=== PATIENT | female | born 1945 | race Caucasian/White ===

== ENCOUNTER 2020-02-09 11:35 | Outpatient (CLI) | payer MEDICARE, SELFPAY ==
[2020-02-09 12:26] LABS: Basophils Percent Auto 0.3 % (0.2-1.2); Eosinophils Absolute Auto 0.4 K/mm3 (0-0.3); Eosinophils Percent Auto 4.1 % (0-4.4); Hematocrit 41.2 % (37.0-47.0); Hemoglobin 13.6 g/dL (12.0-15.0); Immature Granulocyte Absolute 0.03 K/mm3 (0.00-0.031); Immature Granulocyte Percent A 0.3 % (0-0.5); Lymphocytes Absolute Auto 3.15 K/mm3 (0.9-3.2); Lymphocytes Percent Auto 32.8 % (18.3-44.2); Mean Corpuscular Hemoglobin 28.8 pg (26-34); Mean Corpuscular Volume 87.3 fl (80-100); Mean Platelet Volume 9.3 fl (7.4-10.4); Monocytes Absolute Auto 0.8 K/mm3 (0.1-0.6); Neutrophils Absolute Auto 5.2 K/mm3 (1.3-6.7); Neutrophils Percent Auto 54.5 % (45.5-73.1); Platelet Count Result 340 k/mm3 (150-375); Red Blood Count 4.72 M/mm3 (4.2-5.4); Red Cell Distribution Width 13.5 % (11.5-14.5); White Blood Count 9.6 K/mm3 (4.5-10.0)
[2020-02-09 12:27] LABS: Add Urine Microscopic? NO; Appearance Urine Clear (Clear); Bilirubin Urine Negative (Negative); Blood Urine Negative (Negative); Color Urine Yellow (Yellow); Glucose Urine UA Negative (Negative); Ketones Urine Negative (Negative); Leukocyte Esterase Ur Negative LEU/UL (NEGATIVE); Nitrate Urine Negative (Negative); Protein Urine Negative (Negative); Specific Grav Ur 1.018 (1.001-1.035); Urobilinogen Urine Negative mg/dL (<2.0)
[2020-02-09 12:40] LABS: Alanine Aminotransferase 32 U/L (4-35); Albumin Level 4.6 g/dL (3.5-5.1); Alkaline Phosphatase 99 U/L (38-126); Aspartate Amino Transferase 35 U/L (14-36); Bilirubin,Total 0.4 mg/dL (0.2-1.3); Blood Urea Nitrogen 20 mg/dL (7-17); Calcium 9.4 mg/dL (8.4-10.2); Carbon Dioxide 27 mmol/L (22-30); Chloride 101 mmol/L (98-107); Cholesterol 190 mg/dL (0-200); Estimated Glomerular Filt Rate 54; Glucose 100 mg/dL (65-105); HDL Direct 54 mg/dL; Potassium 4.2 mmol/L (3.4-5.0); Sodium 137 mmol/L (137-145); Triglycerides 91 mg/dL (<150)
[2020-02-09 12:51] LABS: LDL Cholesterol Direct 106 mg/dL
[2020-02-09 13:04] LABS: Vitamin D 25 Hydroxy 55.5 ng/mL
== END 2020-02-09 11:36 | disposition home or self-care (01) ==
PROVIDERS: PCP Internal Medicine; Visit Provider Internal Medicine
DX: Z79.899 Other long term (current) drug therapy (principal); I10 Essential (primary) hypertension
CPT/HCPCS: 36415; 80053; 80061; 81003; 82306; 83036; 84443; 85025

== ENCOUNTER 2020-05-19 11:08 | Outpatient (CLI) | payer MEDICARE, SELFPAY ==
[2020-05-19 11:49] LABS: Hemoglobin A1C 5.5 % (<5.7)
[2020-05-19 11:52] LABS: Alanine Aminotransferase 30 U/L (4-35); Albumin Level 4.7 g/dL (3.5-5.1); Alkaline Phosphatase 95 U/L (38-126); Anion Gap 7 mmol/L (8-16); Aspartate Amino Transferase 35 U/L (14-36); Bilirubin,Total 0.4 mg/dL (0.2-1.3); Blood Urea Nitrogen 15 mg/dL (7-17); Calcium 9.9 mg/dL (8.4-10.2); Carbon Dioxide 24 mmol/L (22-30); Chloride 102 mmol/L (98-107); Estimated Glomerular Filt Rate 54; Glucose 104 mg/dL (65-105); Potassium 4.6 mmol/L (3.4-5.0); Sodium 133 mmol/L (137-145)
[2020-05-19 12:09] LABS: Creatinine Urine 259.4 mg/dL
[2020-05-19 12:13] LABS: MALB Creatinine Ratio 3.9 mg/g (0-30)
== END 2020-05-19 11:09 | disposition home or self-care (01) ==
LOC: ANHLAB 11:15
PROVIDERS: PCP Internal Medicine; Visit Provider Internal Medicine
DX: R73.01 Impaired fasting glucose (principal)
CPT/HCPCS: 36415; 80053; 82043; 83036

== ENCOUNTER 2020-11-12 12:37 | Outpatient (CLI) | payer MEDICARE, SELFPAY ==
--- NOTE | ~2020-11-12 | MR_ITS ---
EXAMINATION: MR thoracic spine wo con EXAM DATE: 11/12/2020 14:00 INDICATION: M48.00 - Spinal stenosis, site unspecified . Chronic mid back pain. TECHNIQUE: Multi-sequential, multiplanar MR images of the thoracic spine were obtained without contra st. Sagittal T1, T2, T2 fat saturation, axial T2 weighted images reviewed. There is no prior study for comparison. FINDINGS: Prominent thoracic kyphosis. There is mild to moderate mid thoracic disc disease, mild at t he upper and lower levels. Small Schmorl's nodes. The vertebral bodies are aligned in the AP dimensio n. Paraspinal soft tissue is unremarkable. There is mild to moderate thoracic facet arthropathy. Thor acic spinal canal is widely patent. There is moderate bilateral neural foraminal stenosis at T4-5 and right neural foraminal stenosis at T2-3. Otherwise the thoracic neural foramen are widely patent. There are no suspicious marrow signal abnormalities. Paraspinal soft tissue is unremarkable. IMPRESSION: 1. Overall mild to moderate thoracic spondylosis. Reviewed, dictated and finalized at location A.
--- NOTE | ~2020-11-12 | MR_ITS ---
EXAMINATION: MR lumbar spine wo/w con EXAM DATE: 11/12/2020 14:00 INDICATION: Spinal stenosis, chronic low back pain. Radiculopathy mostly right leg. TECHNIQUE: Multi-sequential, multiplanar MR images of the lumbar spine were obtained without contrast . Sagittal T1, T2, T2 fat saturation images. Axial T2 weighted images. Axial T1 weighted sequence. Patient was then injected with 20 mL Multihance intravenous contrast and reimaged. Postcontrast axi al and sagittal T1-weighted fat saturation sequences were obtained. Comparison is made to prior exami nation from 06/09/2016. FINDINGS: The conus medullaris terminates at the L1 level and has normal signal intensity and morphol ogy. There is moderate to severe loss of the L5-S1 disc height, mild to moderate loss at L2-3 and L1 -2, mild at L3-4. There is 3 mm anterolisthesis L3 on L4 and 5 mm retrolisthesis L5 on S1. There are no suspicious marrow signal abnormalities. Paraspinal soft tissue is unremarkable. There are no areas of abnormal enhancement on the post contrast images. Level by level evaluation: T12-L1: There is a minimal diffuse disc bulge. Facet arthropathy: Mild. Neural foraminal stenosis: No stenosis. Central canal stenosis: No stenosis. L1-L2: There is a mild diffuse disc bulge. Facet arthropathy: Mild to moderate. Neural foraminal stenosis: No stenosis. Central canal stenosis: No stenosis. L2-L3: There is a mild to moderate diffuse disc bulge. Facet arthropathy: Mild to moderate. Neural foraminal stenosis: Mild bilateral. Central canal stenosis: Mild. L3-L4: There is a mild to moderate diffuse disc bulge. Facet arthropathy: Severe left, moderate right. Neural foraminal stenosis: Mild to moderate left, mild right. Central canal stenosis: Moderate. L4-L5: There is a mild to moderate diffuse disc bulge. Facet arthropathy: Moderate to severe bilateral. Neural foraminal stenosis: Mild to moderate right, mild left. Central canal stenosis: Moderate, less than level above. L5-S1: There is a moderate diffuse disc bulge. Facet arthropathy: Moderate to severe. Neural foraminal stenosis: Moderate bilateral. Central canal stenosis: Moderate. Compared to 2016, there has been progression in spondylosis, particularly the disc disease at L5-S1 a nd slight increase in the retrolisthesis at this level. IMPRESSION: 1. Overall moderate lumbar spondylosis. 2. No acute findings. Reviewed, dictated and finalized at location A.
[2020-11-12 13:07] LABS: Estimated Glomerular Filt Rate > 60
== END 2020-11-12 12:38 | disposition home or self-care (01) ==
PROVIDERS: PCP Internal Medicine; Visit Provider Internal Medicine
DX: G89.29 Other chronic pain (principal); M48.00 Spinal stenosis, site unspecified; M47.894 Other spondylosis, thoracic region; M47.896 Other spondylosis, lumbar region
CPT/HCPCS: 72146; 72158; A9577

== ENCOUNTER 2021-05-17 10:34 | Outpatient (CLI) | payer MEDICARE, SELFPAY ==
[2021-05-17 11:47] LABS: Basophils Percent Auto 0.5 % (0.2-1.2); Eosinophils Absolute Auto 0.4 K/mm3 (0-0.3); Eosinophils Percent Auto 4.7 % (0-4.4); Hematocrit 42.1 % (37.0-47.0); Hemoglobin 14.1 g/dL (12.0-15.0); Immature Granulocyte Absolute 0.02 K/mm3 (0.00-0.031); Immature Granulocyte Percent A 0.2 % (0-0.5); Lymphocytes Absolute Auto 2.32 K/mm3 (0.9-3.2); Lymphocytes Percent Auto 26.7 % (18.3-44.2); Mean Corpuscular HGB Conc 33.5 g/dl (32-36); Mean Corpuscular Hemoglobin 30.2 pg (26-34); Mean Corpuscular Volume 90.1 fl (80-100); Mean Platelet Volume 8.6 fl (7.4-10.4); Monocytes Absolute Auto 0.8 K/mm3 (0.1-0.6); Monocytes Percent Auto 9.2 % (2.6-8.5); Neutrophils Absolute Auto 5.1 K/mm3 (1.3-6.7); Neutrophils Percent Auto 58.7 % (45.5-73.1); Platelet Count Result 342 k/mm3 (150-375); Red Blood Count 4.67 M/mm3 (4.2-5.4); White Blood Count 8.7 K/mm3 (4.5-10.0)
[2021-05-17 12:02] LABS: Alanine Aminotransferase 32 U/L (4-35); Alkaline Phosphatase 93 U/L (38-126); Anion Gap 8 mmol/L (8-16); Aspartate Amino Transferase 34 U/L (14-36); Bilirubin,Total 0.3 mg/dL (0.2-1.3); Blood Urea Nitrogen 21 mg/dL (7-17); Calcium 10.1 mg/dL (8.4-10.2); Carbon Dioxide 26 mmol/L (22-30); Chloride 100 mmol/L (98-107); Cholesterol 212 mg/dL (0-200); Estimated Glomerular Filt Rate 44; Glucose 108 mg/dL (65-110); HDL Direct 49 mg/dL; Potassium 4.7 mmol/L (3.4-5.0); Sodium 134 mmol/L (137-145); Triglycerides 129 mg/dL (<150)
[2021-05-17 12:12] LABS: LDL Cholesterol Direct 113 mg/dL
[2021-05-17 12:36] LABS: Vitamin D 25 Hydroxy 79.8 ng/mL
[2021-05-17 12:42] LABS: Hemoglobin A1C 5.8 % (<5.7)
[2021-05-17 12:52] LABS: Creatinine Urine 314.5 mg/dL
[2021-05-17 12:53] LABS: MALB Creatinine Ratio 8.9 mg/g (0-30); Microalbumin Urine Random 27.9 mg/L (0-16.7)
== END 2021-05-17 10:35 | disposition home or self-care (01) ==
PROVIDERS: PCP Internal Medicine; Visit Provider Internal Medicine
DX: E55.9 Vitamin D deficiency, unspecified (principal); G89.29 Other chronic pain; I10 Essential (primary) hypertension; M48.00 Spinal stenosis, site unspecified; M54.5 Low back pain; R73.01 Impaired fasting glucose; E78.2 Mixed hyperlipidemia
CPT/HCPCS: 36415; 80053; 80061; 82043; 82306; 83036; 84443; 85025

== ENCOUNTER → 2021-09-13 01:22 | Outpatient (CLI) | payer MEDICARE, SELFPAY ==
[2021-09-13 13:52] LABS: Influenza A QL RT-PCR Negative (Negative); Influenza B QL RT-PCR Negative (Negative); SARS-CoV-2 RNA PCR Negative
== END ==
PROVIDERS: PCP Internal Medicine; Visit Provider Internal Medicine
DX: R09.89 Other specified symptoms and signs involving the circulatory and respiratory systems (principal); Z20.822 Contact with and (suspected) exposure to COVID-19
CPT/HCPCS: 87502; C9803; U0003; U0005

== ENCOUNTER 2021-11-22 11:31 | Outpatient (CLI) | payer MEDICARE, SELFPAY ==
[2021-11-22 12:19] LABS: Alanine Aminotransferase 30 U/L (4-35); Albumin Level 4.5 g/dL (3.5-5.1); Alkaline Phosphatase 92 U/L (38-126); Anion Gap 9 mmol/L (8-16); Aspartate Amino Transferase 35 U/L (14-36); Bilirubin,Total 0.4 mg/dL (0.2-1.3); Blood Urea Nitrogen 16 mg/dL (7-17); Calcium 9.9 mg/dL (8.4-10.2); Carbon Dioxide 24 mmol/L (22-30); Chloride 102 mmol/L (98-107); Cholesterol 172 mg/dL (0-200); Estimated Glomerular Filt Rate > 60; Glucose 104 mg/dL (65-110); HDL Direct 56 mg/dL; Potassium 4.4 mmol/L (3.4-5.0); Sodium 135 mmol/L (137-145); Triglycerides 106 mg/dL (<150)
[2021-11-22 12:27] LABS: Hemoglobin A1C 5.6 % (<5.7)
[2021-11-22 12:29] LABS: LDL Cholesterol Direct 80 mg/dL
[2021-11-22 12:56] LABS: Creatinine Urine 152.1 mg/dL
[2021-11-22 13:00] LABS: MALB Creatinine Ratio 7.9 mg/g (0-30)
== END 2021-11-22 11:32 | disposition home or self-care (01) ==
PROVIDERS: PCP Internal Medicine; Visit Provider Internal Medicine
DX: R73.01 Impaired fasting glucose (principal); I10 Essential (primary) hypertension; E78.2 Mixed hyperlipidemia
CPT/HCPCS: 36415; 80053; 80061; 82043; 83036

== ENCOUNTER 2022-06-28 14:20 | Outpatient (CLI) | payer MEDICARE, SELFPAY ==
[2022-06-28 14:57] LABS: Alanine Aminotransferase 34 U/L (6-35); Albumin Level 4.7 g/dL (3.5-5.1); Alkaline Phosphatase 84 U/L (38-126); Anion Gap 9 mmol/L (8-16); Aspartate Amino Transferase 32 U/L (14-36); Bilirubin,Total 0.4 mg/dL (0.2-1.3); Blood Urea Nitrogen 19 mg/dL (7-17); Calcium 9.3 mg/dL (8.4-10.2); Carbon Dioxide 26 mmol/L (22-30); Chloride 97 mmol/L (98-107); Cholesterol 163 mg/dL (0-200); Estimated Glomerular Filt Rate 48; Glucose 95 mg/dL (65-110); HDL Direct 59 mg/dL; Potassium 4.5 mmol/L (3.4-5.0); Sodium 132 mmol/L (137-145); Triglycerides 79 mg/dL (<150)
[2022-06-28 15:08] LABS: LDL Cholesterol Direct 67 mg/dL
[2022-06-28 15:13] LABS: Hemoglobin A1C 6.1 % (<5.7)
[2022-06-28 17:00] LABS: Vitamin D 25 Hydroxy 64.2 ng/mL
== END 2022-06-28 14:21 | disposition home or self-care (01) ==
LOC: ANHLAB 14:23
PROVIDERS: PCP Internal Medicine; Visit Provider Nurse Practitioner
DX: E78.5 Hyperlipidemia, unspecified (principal); R73.01 Impaired fasting glucose; E55.9 Vitamin D deficiency, unspecified
CPT/HCPCS: 36415; 80053; 80061; 82306; 83036

== ENCOUNTER 2022-11-07 13:44 | Outpatient (CLI) | payer MEDICARE, SELFPAY ==
[2022-11-07 15:00] LABS: Alanine Aminotransferase 34 U/L (6-35); Albumin Level 4.6 g/dL (3.5-5.1); Alkaline Phosphatase 88 U/L (38-126); Anion Gap 7 mmol/L (8-16); Aspartate Amino Transferase 35 U/L (14-36); Bilirubin,Total 0.5 mg/dL (0.2-1.3); Blood Urea Nitrogen 22 mg/dL (7-17); Calcium 9.9 mg/dL (8.4-10.2); Carbon Dioxide 27 mmol/L (22-30); Chloride 100 mmol/L (98-107); Estimated Glomerular Filt Rate 54; Glucose 93 mg/dL (65-110); Potassium 4.5 mmol/L (3.4-5.0); Sodium 134 mmol/L (137-145)
[2022-11-07 15:16] LABS: Hemoglobin A1C 5.7 % (<5.7)
== END 2022-11-07 13:45 | disposition home or self-care (01) ==
PROVIDERS: PCP Internal Medicine; Visit Provider Internal Medicine
DX: R73.01 Impaired fasting glucose (principal); I10 Essential (primary) hypertension
CPT/HCPCS: 36415; 80053; 83036

== ENCOUNTER 2023-05-16 09:51 | Outpatient (CLI) | payer MEDICARE, SELFPAY ==
[2023-05-16 10:47] LABS: Hemoglobin A1C 5.8 % (<5.7)
[2023-05-16 10:53] LABS: Alanine Aminotransferase 37 U/L (6-35); Albumin Level 4.6 g/dL (3.5-5.1); Alkaline Phosphatase 83 U/L (38-126); Anion Gap 8 mmol/L (8-16); Aspartate Amino Transferase 41 U/L (14-36); Bilirubin,Total 0.6 mg/dL (0.2-1.3); Blood Urea Nitrogen 21 mg/dL (7-17); Calcium 9.6 mg/dL (8.4-10.2); Carbon Dioxide 27 mmol/L (22-30); Chloride 101 mmol/L (98-107); Estimated Glomerular Filt Rate 54; Glucose 115 mg/dL (65-110); Potassium 4.6 mmol/L (3.4-5.0); Sodium 136 mmol/L (137-145)
== END 2023-05-16 09:52 | disposition home or self-care (01) ==
PROVIDERS: PCP Internal Medicine; Visit Provider Nurse Practitioner Family
DX: I10 Essential (primary) hypertension (principal); R73.01 Impaired fasting glucose
CPT/HCPCS: 36415; 80053; 83036

== ENCOUNTER 2023-07-22 14:56 | Outpatient (CLI) | payer MEDICARE, SELFPAY ==
[2023-07-22 15:30] LABS: Basophils Absolute Auto 0.1 K/mm3 (0.0-0.1); Basophils Percent Auto 0.8 % (0.2-1.2); Eosinophils Absolute Auto 0.4 K/mm3 (0-0.3); Eosinophils Percent Auto 3.1 % (0-4.4); Hematocrit 40.1 % (37.0-47.0); Hemoglobin 13.3 g/dL (12.0-15.0); Immature Granulocyte Absolute 0.06 K/mm3 (0.00-0.031); Immature Granulocyte Percent A 0.5 % (0-0.5); Lymphocytes Absolute Auto 2.23 K/mm3 (0.9-3.2); Lymphocytes Percent Auto 19.8 % (18.3-44.2); Mean Corpuscular HGB Conc 33.2 g/dl (32-36); Mean Corpuscular Hemoglobin 29.4 pg (26-34); Mean Corpuscular Volume 88.5 fl (80-100); Monocytes Absolute Auto 1.2 K/mm3 (0.1-0.6); Monocytes Percent Auto 10.6 % (2.6-8.5); Neutrophils Absolute Auto 7.4 K/mm3 (1.3-6.7); Neutrophils Percent Auto 65.2 % (45.5-73.1); Platelet Count Result 464 k/mm3 (150-375); Red Blood Count 4.53 M/mm3 (4.2-5.4); White Blood Count 11.3 K/mm3 (4.5-10.0)
[2023-07-22 15:41] LABS: Alanine Aminotransferase 615 U/L (6-35); Albumin Level 4.4 g/dL (3.5-5.1); Alkaline Phosphatase 335 U/L (38-126); Amylase 67 U/L (30-110); Anion Gap 12 mmol/L (8-16); Aspartate Amino Transferase 316 U/L (14-36); Bilirubin Direct 4.5 mg/dL (0-0.3); Bilirubin,Total 8.6 mg/dL (0.2-1.3); Blood Urea Nitrogen 29 mg/dL (7-17); Calcium 10.3 mg/dL (8.4-10.2); Carbon Dioxide 18 mmol/L (22-30); Chloride 103 mmol/L (98-107); Estimated Glomerular Filt Rate 37; Glucose 109 mg/dL (65-110); Lipase 112 U/L (23-300); Potassium 4.4 mmol/L (3.4-5.0); Sodium 133 mmol/L (137-145)
== END 2023-07-22 14:57 | disposition home or self-care (01) ==
LOC: ANHLAB 14:58
PROVIDERS: PCP Nurse Practitioner Family; Visit Provider Nurse Practitioner Family
DX: R17 Unspecified jaundice (principal); R10.11 Right upper quadrant pain; R19.8 Other specified symptoms and signs involving the digestive system and abdomen
CPT/HCPCS: 36415; 80053; 82150; 82248; 83690; 85025

== ENCOUNTER 2023-07-23 13:02 | Outpatient (CLI) | payer MEDICARE, SELFPAY ==
--- NOTE | ~2023-07-23 | US_ITS ---
US abdomen complete EXAMINATION: US Abdomen Complete INDICATION: Right upper quadrant pain PROCEDURE: Realtime High Resolution abdomen ultrasound. COMPARISON: No prior studies for comparison FINDINGS: There are gallstones. No gallbladder wall thickening or pericholecystic fluid. Common bile duct measures 8 mm. Liver echotexture is increased, consistent with fatty infiltration.. Pancreas within normal limits. Pancreatic tail is obscured by bowel gas. Spleen is unremarkeable. Renal echotexture is within norm al limits bilaterally without hydronephrosis, contour deforming mass or renal stone. Right kidney alexa sures 10.6 cm. Left kidney measures 11 cm. Visualized aspects of the aorta and IVC are within normal limits. Portal vein is patent. No sonograph ic Bradshaw's sign indicated by the technologist. IMPRESSION: 1: Hepatic steatosis. 2: Cholelithiasis. Reviewed, dictated and finalized at location L. ESS RACING HANDICAPPER
[2023-07-23 14:07] LABS: Alanine Aminotransferase 574 U/L (6-35); Albumin Level 4.4 g/dL (3.5-5.1); Alkaline Phosphatase 357 U/L (38-126); Anion Gap 12 mmol/L (8-16); Aspartate Amino Transferase 290 U/L (14-36); Blood Urea Nitrogen 29 mg/dL (7-17); Calcium 10.1 mg/dL (8.4-10.2); Carbon Dioxide 21 mmol/L (22-30); Chloride 103 mmol/L (98-107); Estimated Glomerular Filt Rate 54; Glucose 103 mg/dL (65-110); Potassium 4.4 mmol/L (3.4-5.0); Sodium 136 mmol/L (137-145)
[2023-07-23 15:21] LABS: Hepatitis B Surface Antigen Negative (Negative)
[2023-07-23 15:27] LABS: HAV RESULT Negative (Negative); Hepatitis B Core IgM Result Negative (Negative)
[2023-07-23 16:38] LABS: Hepatitis C Virus Antibody Negative (Negative)
== END 2023-07-23 13:03 | disposition home or self-care (01) ==
PROVIDERS: PCP Nurse Practitioner Family; Visit Provider Nurse Practitioner Family
DX: R10.11 Right upper quadrant pain (principal); K76.0 Fatty (change of) liver, not elsewhere classified; K80.20 Calculus of gallbladder without cholecystitis without obstruction
CPT/HCPCS: 36415; 76700; 80053; 80074

== ENCOUNTER 2023-07-25 09:53 | Outpatient (CLI) | payer MEDICARE, SELFPAY ==
--- NOTE | ~2023-07-25 | CT_ITS ---
CT of the Abdomen and Pelvis: Indication: Abdominal pain Technique: 2.5 mm axial scans were obtained through the abdomen and pelvis following intravenous adm inistration of 100 cc of Omnipaque 350. Dose reduction technique was used on this scan by utilizing a utomated exposure control and iterative reconstruction technique. The dose-length product (DLP) was 1 373.58 mGy-cm. Findings: Scans through the lung bases are unremarkable. Multiple calcified gallstones are present with a distended gallbladder. There is intrahepatic biliary dilatation. Common bile duct is mildly dilated, with calcified stone or stones at the distal common duct (axial images 77-79). The spleen, pancreas, adrenals and kidneys are within normal limits. No evidence of aortic aneurysm. No lymphadenopathy. Possible wall thickening of the transverse colon versus underdistention. No bowel obstruction. No abs cess or free air. Images through the pelvis are degraded by streak artifact from bilateral hip arthroplasty. No gross p elvic mass seen. Urinary bladder is grossly unremarkable. No ascites. Impression: Choledocholithiasis, cholelithiasis, and intrahepatic biliary dilatation, as detailed above. Possible wall thickening of transverse colon versus underdistention. Correlate for infectious/inflamm atory colitis. Reviewed, dictated and finalized at location . HANDISING DIRECTOR Impression: Choledocholithiasis, cholelithiasis, and intrahepatic biliary dilatation, as de tailed above. Possible wall thickening of transverse colon versus underdistention. Correlate for infectious/inflammatory colitis.
== END 2023-07-25 09:54 | disposition home or self-care (01) ==
PROVIDERS: PCP Nurse Practitioner Family; Visit Provider Nurse Practitioner Family
DX: R17 Unspecified jaundice (principal); R10.9 Unspecified abdominal pain; E80.6 Other disorders of bilirubin metabolism; K80.50 Calculus of bile duct without cholangitis or cholecystitis without obstruction
CPT/HCPCS: 74177; Q9967

== ENCOUNTER 2023-07-25 15:13 | Inpatient (IN) | payer MEDICARE, SELFPAY ==
--- NOTE | ~2023-07-25 | XR_ITS ---
EXAMINATION: XR ERCP DATE: 07/26/2023 15:01 INDICATION: Choledocholithiasis. TECHNIQUE: 3 spot fluoroscopic images of the right upper quadrant were obtained during endoscopic ret rograde cholangiopancreatography (ERCP). Fluoroscopy exposure time was 224 seconds. COMPARISON: CT abdomen and pelvis 07/25/2023 FINDINGS: The endoscope is in the second portion of the duodenum. There are stones in the common duct . IMPRESSION: 1. Common duct stones. Please refer to the ERCP procedure note for additional details. Reviewed, dictated and finalized at location A. BUILDER IMPRESSION: 1. Common duct stones. Please refer to the ERCP procedure note for additional d etails.
[2023-07-25 16:02] VITALS: BMI 36.8
--- NOTE | 2023-07-25 16:44 | PM.IMHP ---
H&P: HPI History of Present Illness Date/Time: 07/25/23 16:44 Chief Complaint: Jaundice Narrative: 77 y/o F presents here with jaundice and changes in stool with PMH of HLD, HTN, osteoporosis, spinal stenosis, and arthritis. Patient reports that approximately 1 month ago she experienced an episode of sharp pain between her shoulder blades that was accompanied by nausea, vomiting, and multiple bowel movements. Nausea, vomiting, and upper back pain lasted approximately 1 day and resolved without intervention. However since this episode, she developed pale (white to yellow) colored stool, multiple bowel movements per day, and has noticed an insidious onset of yellowing of her skin/sclera. patient then made appointment with her PCP, attended appointment on 07/22. Lab work revealed mild hyponatremia, TAMY, total bilirubin of 8.6, elevated LFTs, and elevated alk-phos with a negative hepatitis panel. CT showed Choledocholithiasis, cholelithiasis, and intrahepatic biliary dilatation. RUQ US showed Hepatic steatosis, Cholelithiasis, and negative Bradshaw's Sign. Patient was then directly admitted for GI consultation. Review of Systems Review of Systems: All systems reviewed & are unremarkable except as noted in HPI and below PMFSH Past Medical History Medical History Arthritis Degenerative arthritis of knee, bilateral Dyslipidemia Hypertension IFG (impaired fasting glucose) Obesity (BMI 30-39.9) Osteoporosis Spinal stenosis Surgical History Surgical History History of bilateral hip replacements right 2013 standard left 2019 anterior History of foot surgery Family History Family History Mother Hypertension Asthma Cerebrovascular accident Family history of thyroid disease Family history of osteoporosis Depression Heart disease Father Family history of arthritis Family history of thyroid disease, Onset Age: 92 Social History Social History Smoking status: Never smoker Alcohol intake: current Drinks per week: 1 Alcohol use details: social Substance use: never Substance use type: does not use Lack of Transportation: No Lack of Food: Never True Current Housing: I Have Housing Concerned About Future Housing: No Difficulty Paying Gas/Electric Bills: No Difficulty Paying for Meds: No Currently Unemployed: No Education: Bachelor's Degree Difficulty w/ Childcare or Family Care: No Living arrangements: with family Spiritual care concerns: No Meds Home Medications and Allergies Home Medications Medication Instructions Recorded Confirmed Type calcium carbonate 500 mg calcium 500 mg PO DAILY 11/04/20 07/25/23 History (1,250 mg) tablet multivitamin 1 tablet PO DAILY 11/04/20 07/25/23 History turmeric root extract 500 mg 500 mg PO DAILY 11/04/20 07/25/23 History capsule cholecalciferol (vitamin D3) 25 25 mcg PO DAILY 12/12/21 07/25/23 History mcg (1,000 unit) capsule ginkgo biloba 40 mg tablet 40 mg PO DAILY 06/26/22 07/25/23 History vitamins A,C,W-bmlm-oftfwv 4,296 1 cap PO BID 06/26/22 07/25/23 History mcg-226 mg-90 mg capsule (ICaps AREDS) acetaminophen 650 mg 650 mg PO Q12H #60 tabs 11/13/22 07/25/23 Rx tablet,extended release (Tylenol Arthritis Pain) amlodipine 5 mg tablet See Rx Instructions .Route 05/21/23 07/25/23 Rx .COMPLEX #90 tabs lisinopril 20 mg tablet See Rx Instructions .Route 05/21/23 07/25/23 Rx .COMPLEX #90 tabs Allergies Allergy/AdvReac Type Severity Reaction Status Date / Time meloxicam Allergy Unknown CONFUSION Verified 07/22/23 13:47 prednisone Allergy Unknown CYST Verified 07/22/23 13:47 DEVELOP triamterene Allergy Unknown DECREASED Verified 07/22/23 13:47 KIDNEY FU
[2023-07-25 16:50] LABS: Basophils Absolute Auto 0.1 K/mm3 (0.0-0.1); Basophils Percent Auto 0.9 % (0.2-1.2); Eosinophils Absolute Auto 0.2 K/mm3 (0-0.3); Eosinophils Percent Auto 2.4 % (0-4.4); Hematocrit 35.3 % (37.0-47.0); Hemoglobin 11.5 g/dL (12.0-15.0); Immature Granulocyte Absolute 0.05 K/mm3 (0.00-0.031); Immature Granulocyte Percent A 0.5 % (0-0.5); Lymphocytes Absolute Auto 1.78 K/mm3 (0.9-3.2); Lymphocytes Percent Auto 19.3 % (18.3-44.2); Mean Corpuscular HGB Conc 32.6 g/dl (32-36); Mean Corpuscular Hemoglobin 29.5 pg (26-34); Mean Corpuscular Volume 90.5 fl (80-100); Mean Platelet Volume 9.1 fl (7.4-10.4); Monocytes Percent Auto 11.1 % (2.6-8.5); Neutrophils Absolute Auto 6.1 K/mm3 (1.3-6.7); Neutrophils Percent Auto 65.8 % (45.5-73.1); Platelet Count Result 399 k/mm3 (150-375); Red Cell Distribution Width 15.8 % (11.5-14.5); White Blood Count 9.2 K/mm3 (4.5-10.0)
[2023-07-25 16:52] LABS: Alanine Aminotransferase 413 U/L (6-35); Albumin Level 3.8 g/dL (3.5-5.1); Alkaline Phosphatase 334 U/L (38-126); Anion Gap 13 mmol/L (8-16); Aspartate Amino Transferase 211 U/L (14-36); Bilirubin,Total 10.4 mg/dL (0.2-1.3); Blood Urea Nitrogen 24 mg/dL (7-17); Calcium 9.3 mg/dL (8.4-10.2); Carbon Dioxide 17 mmol/L (22-30); Chloride 103 mmol/L (98-107); Estimated CRCL calculation 50 ml/min; Estimated Glomerular Filt Rate 48; Glucose 107 mg/dL (65-110); Lipase 102 U/L (23-300); Potassium 3.7 mmol/L (3.4-5.0); Sodium 133 mmol/L (137-145)
[2023-07-25 16:57] LABS: INR 1.1; Prothrombin Time 14.6 Seconds (11.1-14.7)
--- NOTE | 2023-07-25 17:05 | PM.CNGS ---
Assessment and Plan Assessment and plan (1) Obstructive jaundice: Code(s): K83.1 - Obstruction of bile duct Status: Acute Assessment and Plan: Agree with planned ERCP tomorrow per Dr. Hudson. Hopefully this will show gallstones as cause of obstruction as suggested by CT scan. Malignancy still possible as patient is elderly and experienced back pain up around her right shoulder blade and left shoulder blade. This pain lasted a week. No abdominal pain at all. Jaundice started about one week ago. Other than the early back pain, jaundice is painless. Further plans per findings on ERCP. (2) Cholelithiasis with choledocholithiasis: Code(s): K80.70 - Calculus of gallbladder and bile duct without cholecystitis without obstruction Status: Acute Assessment and Plan: noted on imaging. If stones in CBD as CT suggests, will need eventual cholecystectomy. I explained this to her and described the surgery. I also explained that she may possibly go home and come back to have the surgery as an outpatient. She would like to do that if feasible. (3) Essential hypertension: Code(s): I10 - Essential (primary) hypertension Status: Chronic (4) Primary osteoarthritis involving multiple joints: Code(s): M89.49 - Other hypertrophic osteoarthropathy, multiple sites Status: Chronic (5) Spinal stenosis: Qualifiers: Spinal region: unspecified Qualified Code(s): M48.00 - Spinal stenosis, site unspecified Code(s): M48.00 - Spinal stenosis, site unspecified Status: Chronic (6) Chronic bilateral low back pain without sciatica: Code(s): M54.5 - Low back pain; G89.29 - Other chronic pain Status: Chronic History of Present Illness Consult details Consult date: 07/25/23 Reason for consult: gallstones (Jaundice and common bile duct stones) Requesting physician: Mariah Au APRN Narrative: Patient is a 77 yo woman who about a month ago ate some meat loaf and potatoes. Following this she developed upper back pain as well as multiple episodes of vomiting. She had some loose stools as well. The pain was really bad for about 24hrs but lasted for a week altogether. She has not had the back pain since then. She has never had any abdominal through the entirety of her present illness. The vomiting stopped after about 24 hours too. She has continued to have more frequent stools than is her normal and the bowel movements have looked white. About a week ago, she noticed that her skin had a yellowish color rather than the normal. Her primary care provider ordered an ultrasound and hepatic function tests with CBC and metabolic profile. Her liver function tests were elevated and her bilirubin was 10. Her ultrasound showed gallstones. Her testing was repeated today and bilirubin remains over 10 with increased LFTs. She had a CT scan of the abdomen and pelvis today. This showed calcified gallstones in the gallbladder but also at least 1 or even several stones in her common bile duct. She has not really had any back pain since the initial episode but this did last a week. Again, no abdominal pain at all. She was directly admitted today and is seen now in consultation. Review of the chart looks as though she will be having an ERCP tomorrow. Review of Systems Review of Systems: All systems reviewed & are unremarkable except as noted in HPI and below (HPI and those items noted below) Constitutional: Constitutional: Denies chills and Denies fever(s) Cardiovascular: Cardiovascular: Denies chest pain, Denies diaphoresis, Denies dyspnea and Denies paroxysmal nocturnal dyspnea Respiratory: Respiratory: Denies chest congestion, Denies cough and Denies dyspnea Integumentary/Breasts: Skin/Breast: Denies lesions and Denies rash PMFSH Past Medical History Medical History Arthritis Degenerative arthritis of knee, bilateral Dyslipidemia H
[2023-07-25] MEDS: LACTATED RINGERS 1,000 ML 100 ML IV CONT (17:48)
[2023-07-25] MEDS: levoFLOXacin 500 MG/D5W 100 ML 500 MG/100 ML BAG 100 MG IVPB (17:48)
[2023-07-25 22:00] VITALS: BP 118/46; PULSE 95; RESP 20; TEMP 36.5; O2SAT 96
[2023-07-26] VITALS (9 sets, daily range): BP systolic 84–146; BP diastolic 32–93; PULSE 75–88; RESP 18–23; TEMP 36.3–36.5; O2SAT 97–100; BMI 36.8
[2023-07-26 06:01] LABS: Basophils Absolute Auto 0.1 K/mm3 (0.0-0.1); Basophils Percent Auto 0.8 % (0.2-1.2); Eosinophils Absolute Auto 0.3 K/mm3 (0-0.3); Hematocrit 32.7 % (37.0-47.0); Hemoglobin 10.9 g/dL (12.0-15.0); Immature Granulocyte Absolute 0.05 K/mm3 (0.00-0.031); Immature Granulocyte Percent A 0.5 % (0-0.5); Lymphocytes Absolute Auto 1.93 K/mm3 (0.9-3.2); Lymphocytes Percent Auto 21.1 % (18.3-44.2); Mean Corpuscular HGB Conc 33.3 g/dl (32-36); Mean Corpuscular Hemoglobin 29.6 pg (26-34); Mean Corpuscular Volume 88.9 fl (80-100); Monocytes Percent Auto 10.5 % (2.6-8.5); Neutrophils Absolute Auto 5.9 K/mm3 (1.3-6.7); Neutrophils Percent Auto 64.1 % (45.5-73.1); Platelet Count Result 370 k/mm3 (150-375); Red Blood Count 3.68 M/mm3 (4.2-5.4); Red Cell Distribution Width 15.7 % (11.5-14.5); White Blood Count 9.1 K/mm3 (4.5-10.0)
[2023-07-26 06:17] LABS: Alanine Aminotransferase 359 U/L (6-35); Albumin Level 3.5 g/dL (3.5-5.1); Alkaline Phosphatase 325 U/L (38-126); Anion Gap 10 mmol/L (8-16); Aspartate Amino Transferase 177 U/L (14-36); Blood Urea Nitrogen 20 mg/dL (7-17); Calcium 9.3 mg/dL (8.4-10.2); Carbon Dioxide 17 mmol/L (22-30); Chloride 106 mmol/L (98-107); Estimated CRCL calculation 68 ml/min; Estimated Glomerular Filt Rate > 60; Glucose 122 mg/dL (65-110); Sodium 133 mmol/L (137-145)
[2023-07-26 06:44] LABS: Bilirubin Direct 5.4 mg/dL (0-0.3); Bilirubin Indirect 1.6 mg/dL (0-1.1)
--- NOTE | 2023-07-26 06:59 | WPDGICN ---
Assessment and Plan Assessment and plan (1) Cholelithiasis with choledocholithiasis: Code(s): K80.70 - Calculus of gallbladder and bile duct without cholecystitis without obstruction Status: Acute Assessment and Plan: Patient with gallstones and apparent common bile duct gallstones by CT scan imaging. Suspect this correlates with her elevated LFTs. Plan to start broad-spectrum antibiotics. An ERCP will be plan to extract any common bile duct gallstones. Further recommendations after this is accomplished. (2) Obstructive jaundice: Code(s): K83.1 - Obstruction of bile duct Status: Acute Assessment and Plan: LFTs reveal significant elevation of bilirubin most consistent with obstructive jaundice. Plan to monitor LFTs. Broad-spectrum antibiotics to cover. ERCP to be performed today. GI Consult Note Consult date/time: 07/26/23 06:59 Reason for consult: Abnormal CT scan. Gallstones HPI: Heike Horowitz is a 77 year old female I am asked to see at the request of the hospitalist service. Patient reports she initially began to have right upper back pain 1 month ago. This was associated with vomiting. Because the back pain persisted she went primary care office were laboratory test revealed elevated LFTs. Ultrasound confirmed gallstones. CT scan imaging revealed question of common bile duct gallstones. For this reason patient admitted the hospital for further evaluation and therapy. Patient currently complains primarily of back pain she no longer has vomiting. She denies any significant abdominal pain. Her bowel habits have remained normal. Family history is noncontributory. Review of Systems Review of Systems: Review of systems noncontributory. [facility] Past Medical History Medical History Arthritis Degenerative arthritis of knee, bilateral Dyslipidemia Hypertension IFG (impaired fasting glucose) Obesity (BMI 30-39.9) Osteoporosis Spinal stenosis Surgical History Surgical History History of bilateral hip replacements right 2013 standard left 2019 anterior History of foot surgery Family History Family History Mother Hypertension Asthma Cerebrovascular accident Family history of thyroid disease Family history of osteoporosis Depression Heart disease Father Family history of arthritis Family history of thyroid disease, Onset Age: 92 Social History Social History Smoking status: Never smoker Alcohol intake: current Drinks per week: 1 Alcohol use details: social Substance use: never Substance use type: does not use Lack of Transportation: No Lack of Food: Never True Current Housing: I Have Housing Concerned About Future Housing: No Difficulty Paying Gas/Electric Bills: No Difficulty Paying for Meds: No Currently Unemployed: No Education: Bachelor's Degree Difficulty w/ Childcare or Family Care: No Living arrangements: with family Spiritual care concerns: No Meds Home Medications and Allergies Home Medications Medication Instructions Recorded Confirmed Type calcium carbonate 500 mg calcium 500 mg PO DAILY 11/04/20 07/25/23 History (1,250 mg) tablet multivitamin 1 tablet PO DAILY 11/04/20 07/25/23 History turmeric root extract 500 mg 500 mg PO DAILY 11/04/20 07/25/23 History capsule cholecalciferol (vitamin D3) 25 25 mcg PO DAILY 12/12/21 07/25/23 History mcg (1,000 unit) capsule ginkgo biloba 40 mg tablet 40 mg PO DAILY 06/26/22 07/25/23 History vitamins A,C,H-woaa-weopil 4,296 1 cap PO BID 06/26/22 07/25/23 History mcg-226 mg-90 mg capsule (ICaps AREDS) acetaminophen 650 mg 650 mg PO Q12H #60 tabs 11/13/22 07/25/23 Rx tablet,extended release (Tylenol
--- NOTE | 2023-07-26 07:41 | PM.IMPN ---
Progress Note: A&P Assessment and Plan (1) Obstructive jaundice: Code(s): K83.1 - Obstruction of bile duct Status: Acute Assessment and Plan: CT showing choledocholithiasis, cholelithiasis, and intrahepatic biliary dilatation, as detailed above. Possible wall thickening of transverse colon versus underdistention. Correlate for infectious/inflammatory colitis. RUQ US showing hepatic steatosis, cholelithiasis, and negative sonographic Bradshaw's Sign. Consultation to GI and General Surgery. Imaging/presentation suggestive for gallstone obstruction, plan for ERCP tomorrow. GI also requesting Levaquin initiation. Further recommendations and plan of care pending ERCP results. Malignancy cannot be excluded. Continue to monitor LFTs. NPO at midnight. 07/26: ERCP today with GI. (2) Cholelithiasis with choledocholithiasis: Code(s): K80.70 - Calculus of gallbladder and bile duct without cholecystitis without obstruction Status: Acute Assessment and Plan: General Surgery was consulted, recommendations appreciated. Romeo [place] discussed the potential need for a cholecystectomy with patient, she is requesting this be done outpatient if possible. awaiting ERCP for further plan of care and if choley is warranted. 07/26: May need cholecystectomy. General surgery will re-evaluate after ERCP. (3) Essential hypertension: Code(s): I10 - Essential (primary) hypertension Status: Chronic Assessment and Plan: Continue home amlodipine and lisinopril. Continue to monitor blood pressure. 07/26: Blood pressures reviewed and are stable. Plan Home Meds/Chronic Conditions - hold home vitamin supplementations. Diet: Low Fat, NPO at midnight. GI Prophylaxis: not currently indicated. DVT Prophylaxis: SCDs, planned procedure - hold pharm Lines: pIV Code Status: Full Code Subjective Date/time seen: 07/26/23 07:41 Interval history: HPI obtained from the chart, 77 y/o F presents here with jaundice and changes in stool with PMH of HLD, HTN, osteoporosis, spinal stenosis, and arthritis. Patient reports that approximately 1 month ago she experienced an episode of sharp pain between her shoulder blades that was accompanied by nausea, vomiting, and multiple bowel movements.? Nausea, vomiting, and upper back pain lasted approximately 1 day and resolved without intervention. However since this episode, she developed pale (white to yellow) colored stool, multiple bowel movements per day, and has noticed an insidious onset of yellowing of her skin/sclera.? patient then made appointment with her PCP, attended appointment on 07/22. ? Lab work revealed mild hyponatremia, TAMY, total bilirubin of 8.6, elevated LFTs, and elevated alk-phos with a negative hepatitis panel. CT showed Choledocholithiasis, cholelithiasis, and intrahepatic biliary dilatation. RUQ US showed Hepatic steatosis, Cholelithiasis, and negative Bradshaw's Sign.? Patient was then directly admitted for GI consultation. 07/26: Mrs Horowitz is seen resting in bed in no acute distress. She has no complaints this morning other than being hungry and thirsty. She is awaiting an ERCP today. Discussed with her the risk of possible pancreatitis with this procedure which she understands. No further questions or concerns at this time. Review of Systems Review of Systems: All systems reviewed & are unremarkable except as noted in HPI and below Exam Narrative: General: well appearing, well developed, well nourished, appears stated age. HEENT: normocephalic, atraumatic. Mucous membranes moist. EOMI, PERRLA, jaundice sclera, no conjunctival injection. Neck supple without JVD, lymphadenopathy, or bruit. Respiratory: clear to auscultation bilaterally. No rales/rhonic/wheezes. Cardiovascular: Regular rate and rhythm, normal S1-S2 upon auscultation. No murmurs, rubs, or clicks. PMI is nondisplaced, capillary re-fill less than 3 second. Abdomen: Soft, round, n
[2023-07-26] MEDS: amLODIPine BESYLATE 5 MG TABLET PO (08:14)
[2023-07-26] MEDS: lisinopriL 20 MG TABLET PO (08:14)
[2023-07-26 10:14] LABS: Appearance Urine Clear (Clear); Bacteria Urine None Seen /hpf; Bilirubin Urine 3+ (Negative); Blood Urine Negative (Negative); Color Urine Dark Yellow (Yellow); Glucose Urine UA Negative (Negative); Ketones Urine Negative (Negative); Leukocyte Esterase Ur 1+ LEU/UL (NEGATIVE); Need Manual Microscopic Reviewed; Nitrate Urine Negative (Negative); Non Pathogenic Casts 0-2; Protein Urine Negative (Negative); Specific Grav Ur 1.018 (1.001-1.035); Squamous Epithelial Cell Urine Occasional /hpf (Few); Urobilinogen Urine 0.2 mg/dL (<2.0); pH Urine 5.5 (5.0-9.0)
[2023-07-26 10:19] LABS: Add Urine Microscopic? YES
--- NOTE | 2023-07-26 10:46 | PC.NURSE ---
On 07/26/23, the student, [Shlaini Garcia], provided care and completed [facility] documentation on this patient. I have reviewed the student's documentation and agree with the findings.
--- NOTE | 2023-07-26 13:54 | WPDANESEPPF ---
Anes - Initial Pre Proc Eval Procedure: Operation Date: 07/26/23 14:30 Proposed Procedures p Endoscopic Retro Cholangiopancreatogram - Renny Hudson MD Date/Time: 07/26/23 13:54 Surgeon: Carlee Murrieta DO Pre Op Diagnosis: jaundice,ruq pain Patient Data Age: 77 Gender: F Height: 1.73 m Weight: 110 kg Last Vital Signs Temp 97.7 F 07/26/23 02:59 Pulse 86 07/26/23 02:59 Resp 20 07/26/23 02:59 BP 133/66 07/26/23 02:59 Pulse Ox 97 07/26/23 02:59 O2 Del Method Room Air 07/26/23 10:00 Allergies Allergy/AdvReac Type Severity Reaction Status Date / Time meloxicam Allergy Unknown CONFUSION Verified 07/22/23 13:47 prednisone Allergy Unknown CYST Verified 07/22/23 13:47 DEVELOP triamterene Allergy Unknown DECREASED Verified 07/22/23 13:47 KIDNEY FUNCTION rosuvastatin AdvReac Mild body aches Verified 07/22/23 13:47 Home Medications Medication Instructions Recorded Confirmed Type calcium carbonate 500 mg calcium 500 mg PO DAILY 11/04/20 07/25/23 History (1,250 mg) tablet multivitamin 1 tablet PO DAILY 11/04/20 07/25/23 History turmeric root extract 500 mg 500 mg PO DAILY 11/04/20 07/25/23 History capsule cholecalciferol (vitamin D3) 25 25 mcg PO DAILY 12/12/21 07/25/23 History mcg (1,000 unit) capsule ginkgo biloba 40 mg tablet 40 mg PO DAILY 06/26/22 07/25/23 History vitamins A,C,E-ivbr-avfkau 4,296 1 cap PO BID 06/26/22 07/25/23 History mcg-226 mg-90 mg capsule (ICaps AREDS) acetaminophen 650 mg 650 mg PO Q12H #60 tabs 11/13/22 07/25/23 Rx tablet,extended release (Tylenol Arthritis Pain) amlodipine 5 mg tablet See Rx Instructions .Route 05/21/23 07/25/23 Rx .COMPLEX #90 tabs lisinopril 20 mg tablet See Rx Instructions .Route 05/21/23 07/25/23 Rx .COMPLEX #90 tabs Laboratory Tests 07/25/23 07/26/23 07/26/23 16:37 05:45 05:50 WBC 9.2 K/mm3 9.1 K/mm3 (4.5-10.0) (4.5-10.0) RBC 3.90 L M/mm3 3.68 L M/mm3 (4.2-5.4) (4.2-5.4) Hgb 11.5 L g/dL 10.9 L g/dL (12.0-15.0) (12.0-15.0) Hct 35.3 L % 32.7 L % (37.0-47.0) (37.0-47.0) MCV 90.5 fl 88.9 fl (80-100) (80-100) MCH 29.5 pg 29.6 pg (26-34) (26-34) MCHC 32.6 g/dl 33.3 g/dl (32-36) (32-36) RDW 15.8 H % 15.7 H % (11.5-14.5) (11.5-14.5) Plt Count 399 H k/mm3 370 k/mm3 (150-375) (150-375) MPV 9.1 fl 9.0 fl (7.4-10.4) (7.4-10.4) Immature Gran % (Auto) 0.5 % 0.5 % (0-0.5) (0-0.5) Neut % (Auto) 65.8 % 64.1 % (45.5-73.1) (45.5-73.1) Lymph % (Auto) 19.3 % 21.1 % (18.3-44.2) (18.3-44.2) [place] % (Auto) 11.1 H % 10.5 H % (2.6-8.5) (2.6-8.5) Eos % (Auto) 2.4 % 3.0 % (0-4.4) (0-4.4) Baso % (Auto) 0.9 % 0.8 % (0.2-1.2) (0.2-1.2) Lymph # (Auto) 1.78 K/mm3 1.93 K/mm3 (0.9-3.2) (0.9-3.2) [place] # (Auto) 1.0 H K/mm3 1.0 H K/mm3 (0.1-0.6) (0.1-0.6) Eos # (Auto) 0.2 K/mm3 0.3 K/mm3 (0-0.3) (0-0.3) Baso # (Auto) 0.1 K/mm3 0.1 K/mm3 (0.0-0.1) (0.0-0.1) Abs Immat Gran (auto) 0.05 H K/mm3 0.05 H K/mm3 (0.00-0.031) (0.00-0.031) Absolute Neuts (auto) 6.1 K/mm3 5.9 K/mm3 (1.3-6.7) (1.3-6.7) Absolute Nucleated RBC 0.0 K/mm3 0.0 K/mm3 (0.0-0.012) (0.0-0.012) Nucleated RBC % 0.0 % 0.0 % (0.0-0.2) (0.0-0.2) PT 14.6 Seconds (11.1-14.7) INR 1.1 Sodium 133 L mmol/L 133 L mmol/L (137-145) (137-145) Potassium 3.7 mmol/L 4.0 mmol/L (3.4-5.0) (3.4-5.0) Chloride 103 mmol/L 106 mmol/L (98-107) (98-107) Carbon Dioxide 17 L mmol/L 17 L mmol/L (22-30) (22-30) Anion Gap 13 mmol/L 10 mmol/L (8-16) (8-16) BUN 24 H mg/dL 20 H mg/dL (7-17) (7-17) Creatinine 1.10 H mg/dL 0.80 mg/dL (0.7-1.0) (0.7-1.0) Estim Creat Clear Calc 50 ml/min 68 ml/min Amanda
[2023-07-26] MEDS: LACTATED RINGERS 1,000 ML 150 ML IV CONT (14:03)
[2023-07-26 16:25] LABS: Basophils Absolute Auto 0.1 K/mm3 (0.0-0.1); Basophils Percent Auto 0.8 % (0.2-1.2); Eosinophils Absolute Auto 0.1 K/mm3 (0-0.3); Eosinophils Percent Auto 1.8 % (0-4.4); Hematocrit 35.1 % (37.0-47.0); Hemoglobin 11.5 g/dL (12.0-15.0); Immature Granulocyte Absolute 0.04 K/mm3 (0.00-0.031); Immature Granulocyte Percent A 0.5 % (0-0.5); Lymphocytes Absolute Auto 1.23 K/mm3 (0.9-3.2); Lymphocytes Percent Auto 15.7 % (18.3-44.2); Mean Corpuscular HGB Conc 32.8 g/dl (32-36); Mean Corpuscular Volume 88.4 fl (80-100); Monocytes Absolute Auto 0.5 K/mm3 (0.1-0.6); Monocytes Percent Auto 6.4 % (2.6-8.5); Neutrophils Absolute Auto 5.9 K/mm3 (1.3-6.7); Neutrophils Percent Auto 74.8 % (45.5-73.1); Platelet Count Result 390 k/mm3 (150-375); Red Blood Count 3.97 M/mm3 (4.2-5.4); White Blood Count 7.8 K/mm3 (4.5-10.0)
[2023-07-26] MEDS: levoFLOXacin 500 MG/D5W 100 ML 500 MG/100 ML BAG 100 MG IVPB (16:27)
[2023-07-26 16:35] LABS: Alanine Aminotransferase 367 U/L (6-35); Albumin Level 3.9 g/dL (3.5-5.1); Alkaline Phosphatase 355 U/L (38-126); Aspartate Amino Transferase 198 U/L (14-36); Bilirubin Direct 6.5 mg/dL (0-0.3); Bilirubin,Total 11.6 mg/dL (0.2-1.3)
--- NOTE | 2023-07-26 17:11 | PM.PNGS ---
Progress Note: A&P Assessment and Plan (1) Cholelithiasis with choledocholithiasis: Code(s): K80.70 - Calculus of gallbladder and bile duct without cholecystitis without obstruction Status: Acute Assessment and Plan: ERCP very successful today. Several stones and some sludge were removed from the common bile duct. Generous sphincterotomy was performed. Patient feels great this evening. Surprisingly, she has not had any abdominal pain through out this. Unless her condition should change, I have arranged for her to have laparoscopic cholecystectomy on August 06 at 1:00 p.m.. Patient is aware of this. Okay from surgical standpoint for her to be discharged tomorrow and just returned for the outpatient laparoscopic cholecystectomy as noted above. I discussed the procedure with her again briefly. All questions were answered. She is quite comfortable going ahead as an outpatient. (2) Obstructive jaundice: Code(s): K83.1 - Obstruction of bile duct Status: Acute Assessment and Plan: Still jaundiced but I suspect her bilirubin and liver enzymes will be improved tomorrow. Okay to discharge tomorrow from a surgical standpoint Subjective Subjective Date/Time Seen: 07/26/23 17:11 Patient reports: feels better, tolerating a regular diet and afebrile Interval history: Patient had successful ERCP earlier today. She is quite hungry and waiting for her supper tray. No complaints of abdominal pain nausea or vomiting. Review of Systems Review of Systems: All systems reviewed & are unremarkable except as noted in HPI and below (HPI) Exam Const: General: comfortable, no acute distress, alert and awake Orientation/consciousness: patient oriented x3 GI: Inspection: normal to inspection and non-distended GI Palp: Yes Soft to palpation, No Tenderness to palpation present (GI), No Guarding due to palpation present (GI) and No Rebound tenderness present Auscultation: normal bowel sounds Skin: General skin exam: jaundice Neuro: General: patient oriented x3 and no focal motor deficits Extrem: General: no calf tenderness and no edema Psych: Affect: normal affect Insight: Good insight present (Psych) Judgement: Good judgement present (Psych) Objective Data Vital Signs Vital Signs: Vital Signs - 24 hr 07/25/23 18:29 07/25/23 20:00 07/25/23 22:00 Temperature 36.5 C Pulse Rate 95 Respiratory Rate 20 Blood Pressure 118/46 L Pulse Oximetry 96 Oxygen Delivery Room Air Room Air 07/26/23 02:59 07/26/23 08:15 07/26/23 10:00 Temperature 36.5 C Pulse Rate 86 Respiratory Rate 20 Blood Pressure 133/66 Pulse Oximetry 97 Oxygen Delivery Room Air Room Air 07/26/23 14:00 07/26/23 14:58 07/26/23 15:08 Temperature 36.3 C L Pulse Rate 88 83 83 Respiratory Rate 20 21 H 20 Blood Pressure 120/93 H 84/32 L 111/65 Pulse Oximetry 98 98 100 Oxygen Delivery Room Air Room Air Room Air 07/26/23 15:18 07/26/23 15:28 07/26/23 15:38 Temperature Pulse Rate 87 81 82 Respiratory Rate 20 20 23 H Blood Pressure 146/63 H 129/65 129/70 Pulse Oximetry 100 99 99 Oxygen Delivery Room Air Room Air Room Air 07/26/23 15:48 Temperature Pulse Rate 75 Respiratory Rate 18 Blood Pressure 137/70 Pulse Oximetry 100 Oxygen Delivery Room Air Intake/Output Intake/Output: Intake & Output 07/23/23 07/24/23 07/25/23 07/26/23 23:59 23:59 23:59 23:59 Intake Total 120 100 Balance 120 100 Meds/Results Medications: Active Medications Generic Name Dose Route Start Last Admin Trade Name Ryder PRN Reason Stop Dose Admin Acetaminophen 650 mg 07/25/23 15:39 Acetaminophen 325 Mg Tablet PO Q4H PRN Mild Pain (1-3) or Fever Amlodipine Besylate 5 mg 07/26/23 09:00 07/26/23 08:14 Amlodipine Besylate 5 Mg Tablet PO 5 mg QAM OZZIE Administration Levofloxacin/Dextrose 500 mg in 100 mls @ 100 mls/hr 07/26/23 17:00 07/26/23 16:27 Levaquin 500 Mg/D5w
[2023-07-27 06:05] LABS: Basophils Percent Auto 0.2 % (0.2-1.2); Hemoglobin 10.9 g/dL (12.0-15.0); Immature Granulocyte Absolute 0.08 K/mm3 (0.00-0.031); Immature Granulocyte Percent A 0.8 % (0-0.5); Lymphocytes Absolute Auto 1.27 K/mm3 (0.9-3.2); Lymphocytes Percent Auto 12.4 % (18.3-44.2); Mean Corpuscular Volume 87.8 fl (80-100); Mean Platelet Volume 9.5 fl (7.4-10.4); Monocytes Absolute Auto 0.6 K/mm3 (0.1-0.6); Monocytes Percent Auto 6.1 % (2.6-8.5); Neutrophils Absolute Auto 8.2 K/mm3 (1.3-6.7); Neutrophils Percent Auto 80.5 % (45.5-73.1); Platelet Count Result 404 k/mm3 (150-375); Red Blood Count 3.76 M/mm3 (4.2-5.4); Red Cell Distribution Width 15.7 % (11.5-14.5); White Blood Count 10.2 K/mm3 (4.5-10.0)
[2023-07-27 06:16] LABS: Alanine Aminotransferase 317 U/L (6-35); Albumin Level 3.6 g/dL (3.5-5.1); Alkaline Phosphatase 335 U/L (38-126); Anion Gap 10 mmol/L (8-16); Aspartate Amino Transferase 144 U/L (14-36); Bilirubin,Total 5.5 mg/dL (0.2-1.3); Blood Urea Nitrogen 19 mg/dL (7-17); Calcium 9.4 mg/dL (8.4-10.2); Carbon Dioxide 20 mmol/L (22-30); Chloride 104 mmol/L (98-107); Estimated CRCL calculation 55 ml/min; Estimated Glomerular Filt Rate 54; Glucose 152 mg/dL (65-110); Magnesium 2.1 mg/dL (1.6-2.3); Potassium 4.1 mmol/L (3.4-5.0); Sodium 134 mmol/L (137-145)
--- NOTE | 2023-07-27 06:37 | PM.IMPN ---
Progress Note: A&P Assessment and Plan (1) Obstructive jaundice: Code(s): K83.1 - Obstruction of bile duct Status: Acute Assessment and Plan: CT showing choledocholithiasis, cholelithiasis, and intrahepatic biliary dilatation, as detailed above. Possible wall thickening of transverse colon versus underdistention. Correlate for infectious/inflammatory colitis. RUQ US showing hepatic steatosis, cholelithiasis, and negative sonographic Bradshaw's Sign. Consultation to GI and General Surgery. Imaging/presentation suggestive for gallstone obstruction, plan for ERCP tomorrow. GI also requesting Levaquin initiation. Further recommendations and plan of care pending ERCP results. Malignancy cannot be excluded. Continue to monitor LFTs. NPO at midnight. 07/26: ERCP today with GI. 07/27: s/p ERCP. Findings include 2 gallstones and sludge in the CBD, extracted. Sphincterotomy preformed. Plan for outpatient lap homar on 08/06/[address] Walters. (2) Cholelithiasis with choledocholithiasis: Code(s): K80.70 - Calculus of gallbladder and bile duct without cholecystitis without obstruction Status: Acute Assessment and Plan: General Surgery was consulted, recommendations appreciated. Romeo CLEVELAND discussed the potential need for a cholecystectomy with patient, she is requesting this be done outpatient if possible. awaiting ERCP for further plan of care and if choley is warranted. 07/26: May need cholecystectomy. General surgery will re-evaluate after ERCP. (3) Essential hypertension: Code(s): I10 - Essential (primary) hypertension Status: Chronic Assessment and Plan: Continue home amlodipine and lisinopril. Continue to monitor blood pressure. 07/26: Blood pressures reviewed and are stable. Plan Home Meds/Chronic Conditions - hold home vitamin supplementations. Diet: Low Fat, NPO at midnight. GI Prophylaxis: not currently indicated. DVT Prophylaxis: SCDs, planned procedure - hold pharm Lines: pIV Code Status: Full Code Subjective Date/time seen: 07/27/23 06:37 Interval history: HPI obtained from the chart, 77 y/o F presents here with jaundice and changes in stool with PMH of HLD, HTN, osteoporosis, spinal stenosis, and arthritis. Patient reports that approximately 1 month ago she experienced an episode of sharp pain between her shoulder blades that was accompanied by nausea, vomiting, and multiple bowel movements.? Nausea, vomiting, and upper back pain lasted approximately 1 day and resolved without intervention. However since this episode, she developed pale (white to yellow) colored stool, multiple bowel movements per day, and has noticed an insidious onset of yellowing of her skin/sclera.? patient then made appointment with her PCP, attended appointment on 07/22. ? Lab work revealed mild hyponatremia, TAMY, total bilirubin of 8.6, elevated LFTs, and elevated alk-phos with a negative hepatitis panel. CT showed Choledocholithiasis, cholelithiasis, and intrahepatic biliary dilatation. RUQ US showed Hepatic steatosis, Cholelithiasis, and negative Bradshaw's Sign.? Patient was then directly admitted for GI consultation. 07/26: Mrs Horowitz is seen resting in bed in no acute distress. She has no complaints this morning other than being hungry and thirsty. She is awaiting an ERCP today. Discussed with her the risk of possible pancreatitis with this procedure which she understands. No further questions or concerns at this time. 07/27: S/p ERCP with sphincterotomy, gallstone and sludge removal. Review of Systems Review of Systems: All systems reviewed & are unremarkable except as noted in HPI and below Exam Narrative: General: well appearing, well developed, well nourished, appears stated age. HEENT: normocephalic, atraumatic. Mucous membranes moist. EOMI, PERRLA, jaundice sclera, no conjunctival injection. Neck supple without JVD, lymphadenopathy, or bruit. Respiratory: cl
[2023-07-27 07:49] LABS: Lipase 70 U/L (23-300)
--- NOTE | 2023-07-27 07:57 | WPDGIPROGNO ---
Progress Note: A&P Assessment and Plan (1) Cholelithiasis with choledocholithiasis: Code(s): K80.70 - Calculus of gallbladder and bile duct without cholecystitis without obstruction Status: Acute Assessment and Plan: Patient found to have gallstones and common bile duct gallstone. Common bile duct gallstones were removed with ERCP yesterday. Patient tolerated the procedure well. Currently tolerating diet with no difficulty. No postprocedure discomfort. Anticipate surgery follow-up for a ventral cholecystectomy. We will leave this to their discretion. Patient can be advanced to a low-fat diet. Discharge whenever okay with surgery. Subjective Date/time seen: 07/27/23 07:57 Interval history: Patient is alert comfortable this morning. Denies abdominal pain. Ambulating in the room. Denies any bleeding. Tolerated diet with no difficulty. Review of Systems Review of Systems: Review of systems noncontributory. Exam Narrative: Physical exam reveals patient be alert. Vital signs stable. HEENT exam unremarkable. Lungs are clear. Heart without murmur. Abdomen is soft nontender with no organomegaly. Objective Data Vital Signs Vital Signs: Vital Signs - 24 hr 07/26/23 08:15 07/26/23 10:00 07/26/23 14:00 Temperature 97.4 F L Pulse Rate 88 Respiratory Rate 20 Blood Pressure 120/93 H Pulse Oximetry 98 Oxygen Delivery Room Air Room Air Room Air 07/26/23 14:58 07/26/23 15:08 07/26/23 15:18 Temperature Pulse Rate 83 83 87 Respiratory Rate 21 H 20 20 Blood Pressure 84/32 L 111/65 146/63 H Pulse Oximetry 98 100 100 Oxygen Delivery Room Air Room Air Room Air 07/26/23 15:28 07/26/23 15:38 07/26/23 15:48 Temperature Pulse Rate 81 82 75 Respiratory Rate 20 23 H 18 Blood Pressure 129/65 129/70 137/70 Pulse Oximetry 99 99 100 Oxygen Delivery Room Air Room Air Room Air 07/26/23 20:00 Temperature Pulse Rate 75 Respiratory Rate 18 Blood Pressure Pulse Oximetry 100 Oxygen Delivery Room Air Intake/Output Intake/Output: Intake & Output 07/24/23 07/25/23 07/26/23 07/27/23 23:59 23:59 23:59 23:59 Intake Total 120 750 Balance 120 750 Meds/Results Medications: Active Medications Generic Name Dose Route Start Last Admin Trade Name Ryder PRN Reason Stop Dose Admin Acetaminophen 650 mg 07/25/23 15:39 Acetaminophen 325 Mg Tablet PO Q4H PRN Mild Pain (1-3) or Fever Amlodipine Besylate 5 mg 07/26/23 09:00 07/26/23 08:14 Amlodipine Besylate 5 Mg Tablet PO 5 mg QAM OZZIE Administration Levofloxacin/Dextrose 500 mg in 100 mls @ 100 mls/hr 07/26/23 17:00 07/26/23 17:27 Levaquin 500 Mg/D5w 100 Ml IVPB Infused Q24H OZZIE Infusion Lisinopril 20 mg 07/26/23 09:00 07/26/23 08:14 Lisinopril 20 Mg Tablet PO 20 mg QAM OZZIE Administration Morphine Sulfate 2 mg 07/25/23 15:39 Morphine Sulfate (*Crx) 2 Mg/Ml Inj IV PUSH Q4H PRN Pain Rated 7-10 Naloxone HCl 0.1 mg 07/25/23 15:39 Naloxone Hcl 0.4 Mg/Ml Vial IV PUSH Q2M PRN Opiate Reversal Ondansetron HCl 4 mg 07/25/23 15:39 Ondansetron Inj 4 Mg/2 Ml Vial IV PUSH Q6H PRN Nausea And Vomiting Radiology Results: ITS Impressions Endo Retro Cholangiopancreatogram 07/26/23 15:17 IMPRESSION: 1. Common duct stones. Please refer to the ERCP procedure note for additional details. Labs Labs: Laboratory Results - last 24 hr 07/26/23 07/26/23 07/27/23 09:50 16:16 05:25 WBC 7.8 RBC 3.97 L Hgb 11.5 L Hct 35.1 L MCV 88.4 MCH 29.0 MCHC 32.8 RDW 16.0 H Plt Count 390 H MPV 9.0 Immature Gran % (Auto) 0.5 Neut % (Auto) 74.8 H Lymph % (Auto) 15.7 L [place] % (Auto) 6.4 Eos % (Auto) 1.8 Baso % (Auto) 0.8 Lymph # (Auto) 1.23 [place] # (Auto) 0.5 Eos # (Auto) 0.1 Baso # (Auto) 0.1 Abs Immat Gran (auto) 0.04 H Absolute Neuts (auto) 5.9
[2023-07-27] MEDS: lisinopriL 20 MG TABLET PO (08:15)
[2023-07-27] MEDS: amLODIPine BESYLATE 5 MG TABLET PO (08:15)
--- NOTE | 2023-07-27 09:34 | PM.PNGS ---
Progress Note: A&P Assessment and Plan (1) Cholelithiasis with choledocholithiasis: Code(s): K80.70 - Calculus of gallbladder and bile duct without cholecystitis without obstruction Status: Acute Assessment and Plan: s/p ERCP c stone removal, labs and exam improved, kita diet, ok to dc on low fat diet c plans for interval homar as outpt c Dr. Walters as scheduled Subjective Subjective Date/Time Seen: 07/27/23 09:34 Interval history: feels much better this am, kita low fat diet Review of Systems Review of Systems: All systems reviewed & are unremarkable except as noted in HPI and below Exam Const: General: cooperative, comfortable and no acute distress Resp: Auscultation: clear to auscultation bilaterally Cardio: Rate: regular rate Rhythm: regular rhythm GI: Inspection: normal to inspection and non-distended GI Palp: No abdominal tenderness, Yes Soft to palpation, No Tenderness to palpation present (GI), No Guarding due to palpation present (GI) and No Rigid due to palpation Objective Data Vital Signs Vital Signs: Vital Signs - 24 hr 07/26/23 10:00 07/26/23 14:00 07/26/23 14:58 Temperature 36.3 C L Pulse Rate 88 83 Respiratory Rate 20 21 H Blood Pressure 120/93 H 84/32 L Pulse Oximetry 98 98 Oxygen Delivery Room Air Room Air Room Air 07/26/23 15:08 07/26/23 15:18 07/26/23 15:28 Temperature Pulse Rate 83 87 81 Respiratory Rate 20 20 20 Blood Pressure 111/65 146/63 H 129/65 Pulse Oximetry 100 100 99 Oxygen Delivery Room Air Room Air Room Air 07/26/23 15:38 07/26/23 15:48 07/26/23 20:00 Temperature Pulse Rate 82 75 75 Respiratory Rate 23 H 18 18 Blood Pressure 129/70 137/70 Pulse Oximetry 99 100 100 Oxygen Delivery Room Air Room Air Room Air 07/27/23 08:00 Temperature Pulse Rate Respiratory Rate Blood Pressure Pulse Oximetry Oxygen Delivery Room Air Intake/Output Intake/Output: Intake & Output 07/24/23 07/25/23 07/26/23 07/27/23 23:59 23:59 23:59 23:59 Intake Total 120 750 Balance 120 750 Meds/Results Medications: Active Medications Generic Name Dose Route Start Last Admin Trade Name Freq PRN Reason Stop Dose Admin Acetaminophen 650 mg 07/25/23 15:39 Acetaminophen 325 Mg Tablet PO Q4H PRN Mild Pain (1-3) or Fever Amlodipine Besylate 5 mg 07/26/23 09:00 07/27/23 08:15 Amlodipine Besylate 5 Mg Tablet PO 5 mg QAM OZZIE Administration Levofloxacin/Dextrose 500 mg in 100 mls @ 100 mls/hr 07/26/23 17:00 07/26/23 17:27 Levaquin 500 Mg/D5w 100 Ml IVPB Infused Q24H OZZIE Infusion Lisinopril 20 mg 07/26/23 09:00 07/27/23 08:15 Lisinopril 20 Mg Tablet PO 20 mg QAM OZZIE Administration Morphine Sulfate 2 mg 07/25/23 15:39 Morphine Sulfate (*Crx) 2 Mg/Ml Inj IV PUSH Q4H PRN Pain Rated 7-10 Naloxone HCl 0.1 mg 07/25/23 15:39 Naloxone Hcl 0.4 Mg/Ml Vial IV PUSH Q2M PRN Opiate Reversal Ondansetron HCl 4 mg 07/25/23 15:39 Ondansetron Inj 4 Mg/2 Ml Vial IV PUSH Q6H PRN Nausea And Vomiting Radiology Results: ITS Impressions Endo Retro Cholangiopancreatogram 07/26/23 15:17 IMPRESSION: 1. Common duct stones. Please refer to the ERCP procedure note for additional details. Labs Labs: Laboratory Results - last 24 hr 07/26/23 07/26/23 07/27/23 09:50 16:16 05:25 WBC 7.8 RBC 3.97 L Hgb 11.5 L Hct 35.1 L MCV 88.4 MCH 29.0 MCHC 32.8 RDW 16.0 H Plt Count 390 H MPV 9.0 Immature Gran % (Auto) 0.5 Neut % (Auto) 74.8 H Lymph % (Auto) 15.7 L [place] % (Auto) 6.4 Eos % (Auto) 1.8 Baso % (Auto) 0.8 Lymph # (Auto) 1.23 [place] # (Auto) 0.5 Eos # (Auto) 0.1 Baso # (Auto) 0.1 Abs Immat Gran (auto) 0.04 H Absolute Neuts (auto) 5.9 Absolute Nucleated RBC 0.0 Nucleated RBC % 0.0 Sodium Potassium Chloride Carbon Dioxide Anion Gap BUN Creatinine
--- NOTE | 2023-07-27 10:11 | PM.DS ---
DS: Admitting Diagnosis Discharge Date 07/27 Admitting Diagnosis elevated LFTs, jaundice DS: Discharge Diagnosis Discharge Diagnosis (1) Obstructive jaundice: Code(s): K83.1 - Obstruction of bile duct Status: Acute (2) Cholelithiasis with choledocholithiasis: Code(s): K80.70 - Calculus of gallbladder and bile duct without cholecystitis without obstruction Status: Acute (3) Essential hypertension: Code(s): I10 - Essential (primary) hypertension Status: Chronic Plan (1) Obstructive jaundice: ?Code(s): K83.1 - Obstruction of bile duct ?Status:?Acute ?Assessment and Plan: CT showing?choledocholithiasis, cholelithiasis, and intrahepatic biliary dilatation, as detailed above. Possible wall thickening of transverse colon versus underdistention. Correlate for infectious/inflammatory colitis. RUQ US showing hepatic steatosis, cholelithiasis, and negative sonographic Bradshaw's Sign. Consultation to GI and General Surgery.? Imaging/presentation suggestive for gallstone obstruction, plan for ERCP tomorrow. GI also requesting Levaquin initiation. Further recommendations and plan of care pending ERCP results.? Malignancy cannot be excluded.? Continue to monitor LFTs.? NPO at midnight. 07/26: ERCP today with GI. (2) Cholelithiasis with choledocholithiasis: ?Code(s): K80.70 - Calculus of gallbladder and bile duct without cholecystitis without obstruction ?Status:?Acute ?Assessment and Plan: General Surgery was consulted, recommendations appreciated.? Romeo CLEVELAND discussed the potential need for a cholecystectomy with patient, she is requesting this be done outpatient if possible.? awaiting ERCP for further plan of care and if choley is warranted. 07/26: May need cholecystectomy. General surgery will re-evaluate after ERCP. (3) Essential hypertension: ?Code(s): I10 - Essential (primary) hypertension ?Status:?Chronic ?Assessment and Plan: Continue home amlodipine and lisinopril.? Continue to monitor blood pressure. 07/26: Blood pressures reviewed and are stable. DS: Summary Hospital Course Hospital Course: HPI obtained from the chart, 77 y/o F presents here with jaundice and changes in stool with PMH of HLD, HTN, osteoporosis, spinal stenosis, and arthritis. Patient reports that approximately 1 month ago she experienced an episode of sharp pain between her shoulder blades that was accompanied by nausea, vomiting, and multiple bowel movements.? Nausea, vomiting, and upper back pain lasted approximately 1 day and resolved without intervention. However since this episode, she developed pale (white to yellow) colored stool, multiple bowel movements per day, and has noticed an insidious onset of yellowing of her skin/sclera.? patient then made appointment with her PCP, attended appointment on 07/22. ? Lab work revealed mild hyponatremia, TAMY, total bilirubin of 8.6, elevated LFTs, and elevated alk-phos with a negative hepatitis panel. CT showed Choledocholithiasis, cholelithiasis, and intrahepatic biliary dilatation. RUQ US showed Hepatic steatosis, Cholelithiasis, and negative Bradshaw's Sign.? Patient was then directly admitted for GI consultation. 07/26: Mrs Horowitz is seen resting in bed in no acute distress. She has no complaints this morning other than being hungry and thirsty. She is awaiting an ERCP today. Discussed with her the risk of possible pancreatitis with this procedure which she understands. No further questions or concerns at this time. 07/27: S/p ERCP with sphincterotomy, gallstone and sludge removal. Mrs Horowitz is doing well today. She says she has no pain other than a tender throat from the scope. Labs and vitals reviewed. She is able to d/c home today with outpatient florentin graf scheduled with Dr Walters Status at Discharge Cognitive/behavioral status at discharge: A&Ox4, pleasant Time Spent with Patient Time attestation: Total time spent providing and/or c
== END 2023-07-27 12:05 | disposition home or self-care (01) | DRG 445 ==
PROVIDERS: Internal Medicine Gastroenterology; Student in an Organized Health Care Education/Training Program; Admitting Provider General Practice; PCP Nurse Practitioner Family; Visit Provider Nurse Practitioner Acute Care
PROC: 0FC98ZZ Extirpation of Matter from Common Bile Duct, Via Natural or Artificial Opening Endoscopic (ICD-10-PCS; CPT 43260; principal; 2023-07-26 14:30)
DX: K80.71 Calculus of gallbladder and bile duct without cholecystitis with obstruction (principal); E87.1 Hypo-osmolality and hyponatremia; I10 Essential (primary) hypertension; E78.5 Hyperlipidemia, unspecified; E66.9 Obesity, unspecified; M81.0 Age-related osteoporosis without current pathological fracture; M48.00 Spinal stenosis, site unspecified; M17.0 Bilateral primary osteoarthritis of knee; R73.01 Impaired fasting glucose; Z96.643 Presence of artificial hip joint, bilateral
CPT/HCPCS: 36415; 74177; 74329; 76700; 80053; 80074; 80076; 81001; 82248; 83690; 83735; 85025; 85610; 96374; A9270; G0378; J1100; J1956; J2405; J2704; J7120; Q9966; Q9967

== ENCOUNTER 2023-08-05 11:23 | Outpatient (CLI) | payer MEDICARE, SELFPAY ==
--- NOTE | 2023-08-05 11:41 | ECG_ITS ---
Measurements Intervals Greenback Rate: 90 P: 57 RI: 144 QRS: -16 QRSD: 76 T: 2 QT: 336 QTc: 412 Interpretive Statements SINUS RHYTHM POSSIBLE ANTERIOR MYOCARDIAL INFARCTION [30 ms Q WAVE IN V3/V4, OR R < 0.2 mV IN V4], PROBABLY OLD INFERIOR MYOCARDIAL INFARCTION [40+ ms Q WAVE AND/OR ST/T ABNORMALITY IN II/aVF], PROBABLY OLD ABNORMAL ECG COMPARED TO ECG 10/27/2018 13:26:36 MYOCARDIAL INFARCT FINDING NOW PRESENT Electronically Signed On 08-05-2023 12:52:00 DOUPER by Naveen Yan M.D.
[2023-08-05 12:28] LABS: Alanine Aminotransferase 295 U/L (6-35); Albumin Level 4.3 g/dL (3.5-5.1); Alkaline Phosphatase 199 U/L (38-126); Amylase 74 U/L (30-110); Aspartate Amino Transferase 164 U/L (14-36); Lipase 147 U/L (23-300)
== END 2023-08-05 11:24 | disposition home or self-care (01) ==
PROVIDERS: PCP Nurse Practitioner Family; Visit Provider Surgery
DX: K80.70 Calculus of gallbladder and bile duct without cholecystitis without obstruction (principal); I10 Essential (primary) hypertension; Z01.818 Encounter for other preprocedural examination; R94.31 Abnormal electrocardiogram [ECG] [EKG]
CPT/HCPCS: 36415; 80076; 82150; 83690; 86850; 86900; 86901; 93005

== ENCOUNTER 2023-08-07 02:31 | Day surgery (SDC) | payer MEDICARE, SELFPAY ==
--- NOTE | 2023-08-02 10:12 | PC.NURSE ---
Report to the Outpatient Waiting Room, entrance under the green pavilion located off [facility], at time 1100 on date __08/07/23 . Planned Procedure Time: __1300 . Time changes happen often and if your time is changed the preop area will call you the afternoon before. - You and your visitor will be asked to self-screen and do not enter if you have any COVID symptoms. - A mask is optional within the hospital at this time. Patients may have clear liquids (water, carbonated beverages, clear teas, apple juice) until 3 hours prior to surgery( 10AM) with a maximum of 20 ounces. - No food from midnight until time of surgery Take the following medications with a SIP of water the morning of surgery: ___AMLODIPINE, DO NOT STOP ANY OF YOUR OTHER PRESCRIPTION MEDICATIONS PRIOR TO SURGERY ?EXCEPT THE FOLLOWING Medications to discontinue per physician ___ALL VITAMINS AND SUPPLEMENTS 3 DAYS PRE OP .LAST DOSE 08/03/23 Please no make-up, nail sao tomean, hairspray, perfume, deodorant, or body powder the day of surgery. No jewelry (including any body piercings) or valuables the day of surgery, leave them at home. Please take a shower or bath the night before, or the morning of, surgery with an antibacterial soap. Wear comfortable, loose fitting clothing. Children are encouraged to wear pajamas. - Jewelry must be removed prior to entering the operating room. Rings and piercings that are not removed may be cut off. - The hospital will not accept responsibility for valuables. - Please leave all valuables, including medications, at home the day of surgery. If you are going home after surgery, a licensed shuttle bus driver must drive you home. - NO public transportation without another adult if you receive anesthesia. - We recommend that an adult stay with you for 24 hours following discharge. - We also recommend that you do not drive, make important decision, drink alcoholic beverages, or take any drugs that were not prescribed by your health care provider for at least 24 hours after your discharge time. Follow any additional instructions given to you from your surgeon. If you or anyone in your household have experienced Covid symptoms in the past week, please notify your surgeon or the nurse liaison at the phone number below for possible testing. Telephone instructions given to __PATIENT and asked if any additional questions and then verbalized understanding. Patient advised to call surgeon office or pre surgery nurse liaison [phone] if any additional questions.
[2023-08-02 10:19] VITALS: BMI 36.4
[2023-08-07] VITALS (9 sets, daily range): BP systolic 115–136; BP diastolic 58–77; PULSE 60–97; RESP 14–20; TEMP 36.7–36.9; O2SAT 97–100
[2023-08-07] MEDS: LACTATED RINGERS 1,000 ML 30 ML IV CONT ×2 (07:00→10:38)
--- NOTE | 2023-08-07 07:23 | WPDHPUPDATE1 ---
History and Physical Update Update Date/Time: 08/07/23 07:23 Patient's repeat LFTs and lipase looked good. Lipase remains normal. Relative to 07/27/2023, liver enzymes have significantly improved. Bilirubin is down to 2.0. History and Physical has been reviewed, including an updated exam of the patient. There are NO changes in the patient's condition. Her condition has actually improved from 07/25/2023 until her discharge on 07/27/2023. Risks, benefits, and alternatives have been discussed and questions answered. Patient agrees to proceed with procedure.
[2023-08-07] MEDS: KETOROLAC 15 MG/ML VIAL (*BKC) IV PUSH (08:00)
[2023-08-07] MEDS: ACETAMINOPHEN 500 MG TABLET 1000 MG PO (08:00)
--- NOTE | 2023-08-07 08:44 | WPDANESEPPF ---
Anes - Initial Pre Proc Eval Procedure: Operation Date: 08/07/23 08:30 Proposed Procedures p Laparoscopic Cholecystectomy - Jonathan Walters MD Date/Time: 08/07/23 08:44 Surgeon: Jonathan Walters MD Pre Op Diagnosis: cholelithiasis Patient Data Age: 77 Gender: F Height: 1.74 m Weight: 112.7 kg Last Vital Signs Temp 36.9 C 08/07/23 08:00 Pulse 91 08/07/23 08:00 Resp 16 08/07/23 08:00 BP 118/64 08/07/23 08:00 Pulse Ox 97 08/07/23 08:00 O2 Del Method Room Air 08/07/23 08:00 Allergies Allergy/AdvReac Type Severity Reaction Status Date / Time meloxicam Allergy Unknown CONFUSION Verified 08/07/23 08:01 triamterene Allergy Unknown DECREASED Verified 08/07/23 08:01 KIDNEY FUNCTION rosuvastatin AdvReac Mild body aches Verified 08/07/23 08:01 prednisone AdvReac Unknown CYST Verified 08/07/23 08:03 DEVELOP Home Medications Medication Instructions Recorded Confirmed Type calcium carbonate 500 mg calcium 500 mg PO DAILY 11/04/20 08/07/23 History (1,250 mg) tablet multivitamin 1 tablet PO DAILY 11/04/20 08/07/23 History turmeric root extract 500 mg 500 mg PO DAILY 11/04/20 08/07/23 History capsule cholecalciferol (vitamin D3) 25 25 mcg PO DAILY 12/12/21 08/07/23 History mcg (1,000 unit) capsule ginkgo biloba 40 mg tablet 40 mg PO DAILY 06/26/22 08/07/23 History vitamins A,C,H-ydai-xbasig 4,296 2 cap PO DAILY 06/26/22 08/07/23 History mcg-226 mg-90 mg capsule (ICaps AREDS) amlodipine 5 mg tablet See Rx Instructions .Route 05/21/23 08/07/23 Rx .COMPLEX #90 tabs lisinopril 20 mg tablet See Rx Instructions .Route 05/21/23 08/07/23 Rx .COMPLEX #90 tabs glucosamine sulf dipot 1 cap PO DAILY 08/02/23 08/07/23 History chlr,msm,chond 550 mg-C 30 mg-geovani 1 mg capsule (Glucosamine Chondroitin) Patient hx anesthesia problems: none Family hx anesthesia problems: none Results Review: All pre-operative results and documents have been reviewed as part of the pre-operative evaluation. [facility] Past Medical History Medical History Arthritis Degenerative arthritis of knee, bilateral Dyslipidemia Hypertension IFG (impaired fasting glucose) Obesity (BMI 30-39.9) Osteoporosis Spinal stenosis Surgical History Surgical History History of bilateral hip replacements right 2013 standard left 2019 anterior History of foot surgery Family History Family History Mother Hypertension Asthma Cerebrovascular accident Family history of thyroid disease Family history of osteoporosis Depression Heart disease Father Family history of arthritis Family history of thyroid disease, Onset Age: 92 Social History Social History Smoking status: Never smoker Alcohol intake: current Drinks per week: 1 Alcohol use details: social Substance use: never Substance use type: does not use Lack of Transportation: No Lack of Food: Never True Current Housing: I Have Housing Concerned About Future Housing: No Difficulty Paying Gas/Electric Bills: No Difficulty Paying for Meds: No Currently Unemployed: No Education: Bachelor's Degree Difficulty w/ Childcare or Family Care: No Living arrangements: with family Spiritual care concerns: No Anes - Eval Final PreProcedure Day of Procedure 08/07/23 08:44 Patient weight: obese Heart: regular rate and rhythm Lungs: clear to auscultation Airway: Mallampati scale class II Neurological: alert and oriented Last oral intake: >/= 8 hours ASA classification: III Emergent: no Anesthetic plan: proceed Anesthesia type and monitoring: general ETT and standard monitoring Results Review: All pre-operative results and documents have been review
[2023-08-07] MEDS: ceFAZolin 2 GM/D5W 50 ML 2 GM/50 ML BAG IVPB (08:51)
[2023-08-07] MEDS: BUPIVACAINE/EPINEPHRINE 0.5% 50 ML VIAL 30 ML INFILTRATE (10:21)
--- NOTE | 2023-08-07 10:41 | W.PM.PROC2 ---
Procedure Note - Detailed Date of Procedure 08/07/23 Pre-op Diagnosis Choledocholithiasis with chronic cholecystitis and cholelithiasis Post-op Diagnosis Same Procedure Performed Laparoscopic cholecystectomy Surgeon Jonathan Walters MD Breaker Layer Jg Cooper, [facility] Anesthesia General and Local (0.5% MARCAINE WITH EPINEPHRINE) Indications Patient presented around the end of June with jaundice and a bilirubin of about 11. Evaluation at that time showed gallstones in the gallbladder and also several stones in the common bile duct. She underwent a successful ERCP. She went home after recovering from that procedure and is taken back to surgery at this time for laparoscopic cholecystectomy. She really did not have any abdominal pain when she 1st presented and has not had any since discharged. Her liver enzymes have greatly improved and her bilirubin is 2. Findings Patient had severe chronic cholecystitis with a very thickened peritoneum overlying the gallbladder and bile ducts. There were several stones in the gallbladder. The edges of the liver were attached to the gallbladder and it was intrahepatic particularly in the lower aspects of the gallbladder near the infundibulum. It was very difficult dissecting the gallbladder off the liver as there was no tissue plane due to the significant inflammation. The cystic duct was still very dilated and had to be ligated with a Vicryl endoloop rather than a clip. I had to put a 5th port in the left mid abdomen to retract the liver so that I could see the edge of the gallbladder and liver to dissect up the medial edge of the gallbladder. Operating time for this procedure was nearly an hour and a half which is 2 or 3 times the usual time needed for this procedure. Estimated blood loss was 30 cc which is also at least twice as much as is typical. Description of Procedure Patient was taken to surgery and induced into general anesthesia. The abdomen was prepped and draped. Trocars were placed in the usual fashion using 0.5% Marcaine with epinephrine and applied Medical optical trocars. After the 1st incision was made, the varies needle was passed into the abdomen and insufflation was carried out to obtain some abdominal distension. The trocars went in easily. Gallbladder was not immediately seen as it was tucked under the liver and a bit more lateral than usual. The gallbladder was elevated and traction was placed on the infundibulum. The gallbladder was intrahepatic over most of its length but particularly in the area around the infundibulum. A 5th 5 mm trocar was placed in the left mid abdomen. This was placed on the liver to retract liver edge so that I could see the connection between the gallbladder and the liver. I will say the liver was very fragile and easily tore with even gentle blunt retraction as we used in this instance. Fortunately there was not very much bleeding from this. With traction on the infundibulum, I started dissection in the lower aspect of the gallbladder and around the cystic duct. The dissection was quite difficult as the thickened peritoneum was very hard to dissect past or into. This was slow tedious dissection. Several different dissecting instruments were used. There was some associated bleeding, not only from liver retraction but also from the gallbladder fossa and the dissection. Eventually I was able to dissect out the cystic artery quite well. I dissected the gallbladder off the liver at its lower 3rd. I securely clipped and divided the cystic artery. The cystic duct was dilated and I then spent considerable more mount of time dissecting some of the thickened peritoneum off the cystic duct as well as some of the fatty tissue which was now also thickened and firm. I was able to see the junction of the cystic duct and common bile duct. I then securely clipped the junction of the cystic duct and gallbladder. I cut the cystic duct just below this clip. I was then able to pull
[2023-08-07] MEDS: oxyCODONE HCL (*CRX) 5 MG TAB IR PO (12:16)
== END 2023-08-07 12:50 | disposition home or self-care (01) ==
PROVIDERS: PCP Nurse Practitioner Family; Visit Provider Surgery
PROC: 0FT44ZZ Resection of Gallbladder, Percutaneous Endoscopic Approach (ICD-10-PCS; CPT 47562; principal; 2023-08-07 08:30)
DX: K80.64 Calculus of gallbladder and bile duct with chronic cholecystitis without obstruction (principal); I10 Essential (primary) hypertension; E78.5 Hyperlipidemia, unspecified; M81.0 Age-related osteoporosis without current pathological fracture; E66.9 Obesity, unspecified; Z68.37 Body mass index [BMI] 37.0-37.9, adult
CPT/HCPCS: 47562; 88304; A9270; C1713; J0690; J1100; J1885; J2405; J2704; J2710; J3010; J7120

== ENCOUNTER 2023-11-15 10:24 | Outpatient (CLI) | payer MEDICARE, SELFPAY ==
[2023-11-15 10:56] LABS: Basophils Absolute Auto 0.1 K/mm3 (0.0-0.1); Basophils Percent Auto 0.6 % (0.2-1.2); Eosinophils Absolute Auto 0.4 K/mm3 (0-0.3); Eosinophils Percent Auto 4.2 % (0-4.4); Hematocrit 42.7 % (37.0-47.0); Hemoglobin 13.8 g/dL (12.0-15.0); Immature Granulocyte Absolute 0.04 K/mm3 (0.00-0.031); Immature Granulocyte Percent A 0.4 % (0-0.5); Lymphocytes Absolute Auto 2.85 K/mm3 (0.9-3.2); Lymphocytes Percent Auto 32.1 % (18.3-44.2); Mean Corpuscular HGB Conc 32.3 g/dl (32-36); Mean Corpuscular Hemoglobin 29.1 pg (26-34); Mean Corpuscular Volume 90.1 fl (80-100); Mean Platelet Volume 8.5 fl (7.4-10.4); Monocytes Absolute Auto 0.7 K/mm3 (0.1-0.6); Monocytes Percent Auto 7.4 % (2.6-8.5); Neutrophils Absolute Auto 4.9 K/mm3 (1.3-6.7); Neutrophils Percent Auto 55.3 % (45.5-73.1); Platelet Count Result 303 k/mm3 (150-375); Red Blood Count 4.74 M/mm3 (4.2-5.4); White Blood Count 8.9 K/mm3 (4.5-10.0)
[2023-11-15 11:11] LABS: Alanine Aminotransferase 32 U/L (6-35); Albumin Level 4.3 g/dL (3.5-5.1); Alkaline Phosphatase 80 U/L (38-126); Anion Gap 3 mmol/L (8-16); Aspartate Amino Transferase 33 U/L (14-36); Bilirubin,Total 0.6 mg/dL (0.2-1.3); Blood Urea Nitrogen 19 mg/dL (7-17); Calcium 9.5 mg/dL (8.4-10.2); Carbon Dioxide 28 mmol/L (22-30); Chloride 102 mmol/L (98-107); Estimated Glomerular Filt Rate > 60; Glucose 111 mg/dL (65-110); Potassium 4.3 mmol/L (3.4-5.0); Sodium 133 mmol/L (137-145)
[2023-11-15 16:58] LABS: Hemoglobin A1C 6.1 % (<5.7)
== END 2023-11-15 10:25 | disposition home or self-care (01) ==
PROVIDERS: PCP Nurse Practitioner Family; Visit Provider Nurse Practitioner Family
DX: I10 Essential (primary) hypertension (principal); E66.9 Obesity, unspecified; M89.49 Other hypertrophic osteoarthropathy, multiple sites; R73.01 Impaired fasting glucose
CPT/HCPCS: 36415; 80053; 83036; 85025

== ENCOUNTER 2024-03-11 12:25 | Outpatient (CLI) | payer MEDICARE, SELFPAY ==
--- NOTE | ~2024-03-11 | XR_ITS ---
Right Shoulder Technique: AP and scapular Y views were obtained. Clinical History: Pain Findings: No fracture or dislocation is seen. Osseous alignment is anatomic. Inferomedial humeral hea d osteophyte present. There is mild glenohumeral joint degenerative change. Soft tissues are unremark able. Impression: Moderate glenohumeral joint degenerative change. Mild AC joint degenerative change. Reviewed, dictated and finalized at location . Impression: Moderate glenohumeral joint degenerative change. Mild AC joint degenerative clark nge.
== END 2024-03-11 12:26 | disposition home or self-care (01) ==
PROVIDERS: PCP Nurse Practitioner Family; Visit Provider Nurse Practitioner Family
DX: M19.011 Primary osteoarthritis, right shoulder (principal)
CPT/HCPCS: 73030

== ENCOUNTER 2024-04-22 14:42 | Outpatient (CLI) | payer MEDICARE, SELFPAY ==
--- NOTE | ~2024-04-22 | DEXA_ITS ---
Bone Density Report Name: ERICKSON VELIZ Age: 78 Sex: Female Ethnicity: White Date of : 1945 Indication: postmenopausal; screening for osteoporosis; Referring Provider: BIANCA GREENBERG Study: Bone densitometry was performed. Exam Date: April 22, 2024 Accession number: [id number] Bone Density: Region BMD T-score Z-score Classification AP Spine(L1-L4) 1.203 1.4 4.0 Normal World Health Organization criteria for BMD impression classify patients as: Normal (T-score at or above -1.0), Osteopenia (T-score between -1.0 and -2.5), or Osteoporosis (T-score at or below -2.5). Previous Exams: Region Exam Age BMD T-score BMD Change BMD Change Date g/cm2 vs Baseline vs Previous AP Spine (L1-L4) 04/22/2024 78 1.203 1.4 0.045 (3.9%)* 0.047 (4.0%)* 06/15/2019 73 1.156 1.0 -0.001 (-0.1%) -0.001 (-0.1%) 03/15/2017 71 1.157 1.0 *Denotes significance at 95% confidence level, LSC for AP Spine = 0.022 g/cm2 Clinical Information Provided by Patient: Has used the following medications: Vitamin D, Calcium Patient maximum height was 68.75 Menopause Age: 53 Drinks caffeinated beverages Onset of menses at age 14 Number of children 0 Impression: The patient has normal bone mass. No significant bone loss was observed. Discussion: LOW RISK OF FRACTURE; BONE DENSITY IS WELL ABOVE THE MINIMUM DESIRABLE LEVEL AND ABOVE AVERAGE FOR AGE AND SEX AT ALL SKELETAL SITES TESTED. This person's bone density is above expected limits for age and sex. This is rarely clinically significant, but should be pursued if there are significant musculoskeletal complaints. The patient should follow a healthful lifestyle (good nutrition with adequate calcium and vitamin D, and appropriate weight-bearing exercise). Follow-Up: Consider repeating this study in 5 years or sooner if there is some new clinical indication. Reported by: JACY on 04/22/2024 3:05:00 PM. Reviewed, dictated and finalized at location [facility]
== END 2024-04-22 14:43 | disposition home or self-care (01) ==
LOC: ANHIMG 14:43
PROVIDERS: PCP Nurse Practitioner Family; Visit Provider Nurse Practitioner Family
DX: Z78.0 Asymptomatic menopausal state (principal); Z13.820 Encounter for screening for osteoporosis
CPT/HCPCS: 77080

== ENCOUNTER 2024-05-26 10:45 | Outpatient (CLI) | payer MEDICARE, SELFPAY ==
[2024-05-26 11:12] LABS: Alanine Aminotransferase 50 U/L (6-35); Albumin Level 4.5 g/dL (3.5-5.1); Alkaline Phosphatase 99 U/L (38-126); Anion Gap 10 mmol/L (4-12); Aspartate Amino Transferase 31 U/L (14-36); Bilirubin,Total 0.4 mg/dL (0.2-1.3); Blood Urea Nitrogen 19 mg/dL (7-17); Calcium 9.6 mg/dL (8.4-10.2); Carbon Dioxide 24 mmol/L (22-30); Chloride 100 mmol/L (98-107); Estimated Glomerular Filt Rate > 60; Glucose 110 mg/dL (65-110); Potassium 4.7 mmol/L (3.4-5.0); Sodium 134 mmol/L (137-145)
[2024-05-26 11:32] LABS: Vitamin D 25 Hydroxy 74.1 ng/mL
== END 2024-05-26 10:46 | disposition home or self-care (01) ==
LOC: ANHLAB 10:49
PROVIDERS: PCP Nurse Practitioner Family; Visit Provider Nurse Practitioner Family
DX: E55.9 Vitamin D deficiency, unspecified (principal); E66.9 Obesity, unspecified; H35.30 Unspecified macular degeneration; I10 Essential (primary) hypertension; M89.49 Other hypertrophic osteoarthropathy, multiple sites; R73.01 Impaired fasting glucose
CPT/HCPCS: 36415; 80053; 82306; 83036

== ENCOUNTER 2024-10-30 15:27 | Outpatient (CLI) | payer MEDICARE, SELFPAY ==
--- NOTE | ~2024-10-30 | MR_ITS ---
EXAMINATION: MR lumbar spine wo con DATE: 10/30/2024 16:42 INDICATION: Spinal stenosis, lumbar region with neurogenic claudication. Low back pain with radiculop athy. TECHNIQUE: Magnetic resonance imaging (MRI) of the lumbar spine was performed without intravenous con trast. Sequences included sagittal T2-weighted FSE, sagittal T2-weighted FS FSE, sagittal T1-weighted FSE, and axial T2-weighted FSE. COMPARISON: Lumbar spine MRI 11/12/20 FINDINGS: There is 3 mm anterolisthesis of L3 on L4 and 4 mm retrolisthesis of L5 on S1. Vertebral sofi dy heights are normal. There is mildly decreased disc height at L2-L3 and severely decreased disc hei ght at L5-S1. The distal spinal cord signal intensity is normal. The conus medullaris is at L1. The f ollowing disc levels are specifically discussed: L1-L2: There is a central extrusion. There is severe bilateral facet joint osteoarthritis. There is n o neural foraminal stenosis. There is mild central canal stenosis. L2-L3: The disc is bulging. There is severe bilateral facet joint osteoarthritis. There is mild bilat eral neural foraminal stenosis. There is mild central canal stenosis. L3-L4: The disc does not extend beyond the endplate margin. There is severe bilateral facet joint ost eoarthritis. There is hypertrophy of the ligamentum flavum. There is mild bilateral neural foraminal stenosis. There is mild central canal stenosis. L4-L5: The disc does not extend beyond the endplate margin. There is severe bilateral facet joint ost eoarthritis. There is mild bilateral neural foraminal stenosis. There is no central canal stenosis. L5-S1: The disc is bulging and has an annular fissure. There is severe bilateral facet joint osteoart hritis. There is mild bilateral neural foraminal stenosis. There is mild central canal stenosis. IMPRESSION: 1. Severe lower lumbar spondylosis, stable from 11/12/2020. Reviewed, dictated and finalized at location A. [facility]KER
--- OUTSIDE RECORDS SUMMARY | 2024-10-30 15:37 | XMS_ITS | CONTINUITY OF CARE DOCUMENT ---
Author Name nomi, nomi Address Unknown Organization [facility] Office Address [address] [place] [address] Phone [phone] Care Team Providers Care Project Administrator Name Role Phone Mat Sheldon MD Unavailable JOSE ANGEL HOFFMANN MD Unavailable JOSE ANGEL HOFFMANN MD Unavailable PROBLEMS Condition Status Date Provider Notes Abnormal electrocardiogram active Mat rivera MD Abnormal echo-possible PFO active Mat rivera MD ENCOUNTERS Date Type Provider Location Encounter Diag nosis - In-person encounter Office Visit Mat Sheldon MD [place] [facility] - In-person encounter Office Visit Mat Sheldon MD [place] [facility] Abnormal electrocardiogramAbnormal echo-possible PFO VITAL SIGNS Date Observation Value Provider blood pressure, diastolic 80 mm[Hg] Us ellen Sheldon MD blood pressure, systolic 130 mm[Hg] Sherman Sheldon MD pulse rate 92 /min Mat Sheldon MD oxygen saturation, oximetry 95 % Mat Sheldon MD respiratory rate E&M 20 /min Mat jimenez MD weight E&M 230 [lb_av] Mat Sheldon MD blood pressure, diastolic 90 mm[Hg] Us ellen Sheldon MD blood pressure, systolic 148 mm[Hg] Sherman Sheldon MD respiratory rate E&M 16 /min Mat jimenez MD pulse rate 86 /min Mat Sheldon MD oxygen saturation, oximetry 97 % Mat Sheldon MD weight E&M 230 [lb_av] Mat Sheldon MD height E&M 69 [in_i] Mat Sheldon MD ALLERGIES No Known Drug Allergies HISTORY OF MEDICATION USE Medication Status Instructions Dates Provider Indications Com ments OMEGA-3 FISH OIL 1000 MG ORAL CAPSULE active One tab. daily Mat Sheldon MD ZINC GLUCONATE TABLET active Mat Sheldon MD POTASSIUM CHLORIDE JUNITO ER 10 MEQ ORAL TABLET EXTENDED RELEASE active ONE TAB. DAILY Mat Sheldon MD TRIAMTERENE-HCTZ 37.5-25 MG ORAL TABLET active Mat Sheldon MD HYDROCODONE-ACETA MINOPHEN 7.5-325 MG ORAL TABLET active Mat Sheldon MD ASPIRIN 325 MG ORAL TABLET active one tab daily Mat Sheldon MD SOCIAL HISTORY Date Observation Value Provider smoking status Never smoker Mat Sheldon MD social history reviewed E&M reviewed - no changes required Mat Sheldon MD social history reviewed E&M reviewed - no changes required Mat Sheldon MD smoking status Never smoker Mat Sheldon MD social history E&M Occupation: R etired teacher. Ellen margot has never smoked. Smoking History: P margot has never smoked. Mat Sheldon MD FAMILY HISTORY Family Member Condition Mother Family History of Co ngestive Heart Failure: Father Family History of Co ngestive Heart Failure: INSURANCE PROVIDERS Payer name Policy type / Coverage type [place] red constitution party ID [facility] [id number] [place] Medicare [id number]
== END 2024-10-30 15:28 | disposition home or self-care (01) ==
LOC: ANHIMG 15:35
PROVIDERS: PCP Nurse Practitioner Family; Visit Provider Anesthesiology Pain Medicine
DX: M48.062 Spinal stenosis, lumbar region with neurogenic claudication (principal); M54.17 Radiculopathy, lumbosacral region; M48.07 Spinal stenosis, lumbosacral region; M43.16 Spondylolisthesis, lumbar region; M47.817 Spondylosis without myelopathy or radiculopathy, lumbosacral region
CPT/HCPCS: 72148

== ENCOUNTER 2024-12-01 00:45 | Day surgery (SDC) | payer MEDICARE, SELFPAY ==
[2024-11-17 11:06] VITALS: BMI 37.8
--- NOTE | 2024-11-17 11:17 | PC.NURSE ---
Report to the Outpatient Waiting Room, entrance under the green pavilion located off [facility], at time ___11:30am____ on date _12/01/24 . Planned Procedure Time: __12:30pm .? Time changes happen often and if your time is changed the preop area will call you the afternoon before. - You and your visitor will be asked to self-screen and do not enter if you have any COVID symptoms. Please call surgeon if you need to reschedule. - A mask is optional within the hospital at this time. Patients may have light breakfast and drink for early am and then only clear liquids (water, carbonated beverages, clear teas, apple juice) until 2 hours prior to surgery with a maximum of 20 ounces. - NO smoking, or chewing tobacco (or any form of nicotine). No chewing gum, candy or mints. Take only the following medications with a SIP of water on the morning of surgery: Normal am meds DO NOT STOP ANY OF YOUR OTHER PRESCRIPTION MEDICATIONS PRIOR TO SURGERY EXCEPT THE FOLLOWING Medications to discontinue per physician None Date to take last dose None Please no make-up, nail thai, hairspray, perfume, deodorant, or body powder the day of surgery.? No jewelry (including any body piercings) or valuables the day of surgery, leave them at home.? Please take a shower or bath the night before, or the morning of, surgery with an antibacterial soap.? Wear comfortable, loose fitting clothing.? - Jewelry must be removed prior to entering the operating room.? Rings and piercings that are not removed may be cut off. - The hospital will not accept responsibility for valuables.? - Please leave all valuables, including medications, at home the day of surgery. If you are going home after surgery, a licensed charter bus driver must drive you home.? - NO public transportation without another adult if you receive anesthesia. - We recommend that an adult stay with you for 24 hours following discharge. - We also recommend that you do not drive, make important decision, drink alcoholic beverages, or take any drugs that were not prescribed by your health care provider for at least 24 hours after your discharge time. Follow any additional instructions given to you from your surgeon. You cannot drive for 24 hours, pt sister will be her Animal Chiropractor. Telephone instructions given to __Patient and asked if any additional questions and then verbalized understanding. Patient advised to call surgeon office or pre surgery nurse liaison [phone] if any additional questions.
--- NOTE | ~2024-12-01 | XR_ITS ---
XR fluoroscopy no charge Indication: Lumbar steroid injection TECHNIQUE: Fluoroscopy used during lumbar steroid injection performed by [Troy Moya MD] o n 12/01/2024. 42 seconds of fluoroscopy with 48 fluoroscopic images captured. FINDINGS: Correlate with procedure note. IMPRESSION: Fluoroscopy used during lumbar steroid injection. Reviewed, dictated and finalized at location A.
--- OUTSIDE RECORDS SUMMARY | 2024-12-01 00:48 | XMS_ITS | Continuity of Care Document ---
Author Organization [facility] Address [address] [place] [address] Phone Care Team Providers Care Flour Inspector Name Role Phone CONV, [facility] Unavailable Unavailable Advance Directives Directive Yes / No Effective Date File Name No Information Encounters Encounter Description Practice Location Reason(s) For Visit Diagnoses Date Provider Providers Copied on Encounter [facility] /[facility], [address] [place] [address], [address], tel:[phone] Z [facility] CONV No Information CONV [facility]. [address] [place] [address], [address], . Family History Family Member Type Diagnosis Age At Onset No Information Immunizations Vaccine Date Status Comments INFLUENZA VACCINE administered Note: RA ; Source: New Immunization Record INFLUENZA VACCINE administered Note: RA ; Source: New Immunization Record PPSV23, PNEUMOCOCCAL VACCINE administered Note: LA ; Source: New Immunization Record Payers Payer name Insurance type Covered libertarian ID Authoriza tion(s) No Information Social History Type Description Quantity Date Captured Comments Sex Female Smoking Status No Information Chief Complaint And Reason For Visit No Information History Of Present Illness Encounter Date Complaint History Of Prese nt Illness No Information Instructions Date Instruction Additional Infor mation No Information Assessments Type Assessment Date No Information Patient Care Teams Name Effective Dates (start - stop) Status Members No Information
--- OUTSIDE RECORDS SUMMARY | 2024-12-01 00:48 | XMS_ITS | CONTINUITY OF CARE DOCUMENT ---
Author Name nomi, nomi Address Unknown Organization [facility] Office Address [address] [place] [address] Phone [phone] Care Team Providers Care Electrolysis Operator Name Role Phone Mat Sheldon MD Unavailable [phone] JOSE ANGEL HOFFMANN MD Unavailable JOSE ANGEL HOFFMANN MD Unavailable PROBLEMS Condition Status Date Provider Notes Abnormal electrocardiogram active Mat rivera MD Abnormal echo-possible PFO active Mat rivera MD ENCOUNTERS Date Type Provider Location Encounter Diag nosis - In-person encounter Office Visit Mat Sheldon MD [facility] - In-person encounter Office Visit Mat Sheldon MD [facility] Abnormal electrocardiogramAbnormal echo-possible PFO VITAL SIGNS [...] Payer name Policy type / Coverage type [place] red alliance party ID [facility] [id number] [place] Medicare [id number]
--- NOTE | 2024-12-01 12:22 | PM.HPGS ---
History of Present Illness History of Present Illness Consent: Risks, benefits, and alternatives have been discussed and questions answered. Patient agrees to proceed with procedure. Chief complaint: Spinal Stenosis of lumbosacral region, lumbosacral Narrative: Heike Horowitz is a 79 year old female with chronic, recalcitrant and disabling low back and lower extremity pain secondary to lumbar radiculopathy with failure to respond to aggressive conservative measures including PT, oral and topical analgesics, opioid and nonopioid analgesics, rest, time and activity/behavioral modification over the past 6-12 months who presents for bilateral lumbar transforaminal epidural steroid injection at L3-4 under fluoroscopic guidance and with contrast control. Review of Systems Review of Systems: Patient denies any new infectious, allergic, cardiopulmonary, neurologic or constitutional symptoms or changes in activity tolerance or exercise capacity including new or progressive SOB/MONSALVE, peripheral edema, productive cough, dysuria, nausea/vomiting, diarrhea, weight change, fevers/chills/night sweats, new or progressive neurologic deficit, cognitive or mood changes since last seen, except as documented in the HPI. All systems reviewed & are unremarkable except as noted in HPI and below PMFSH Past Medical History Medical History Arthritis Degenerative arthritis of knee, bilateral Dyslipidemia Hypertension IFG (impaired fasting glucose) Obesity (BMI 30-39.9) Osteoporosis Spinal stenosis Surgical History Surgical History History of bilateral hip replacements right 2013 standard left 2019 anterior History of foot surgery Hx laparoscopic cholecystectomy Family History Family History Mother Hypertension Asthma Cerebrovascular accident Family history of thyroid disease Family history of osteoporosis Depression Heart disease Father Family history of arthritis Family history of thyroid disease, Onset Age: 92 Social History Social History Smoking status: Never smoker Alcohol intake: current Drinks per week: 1 Alcohol use details: social Substance use: never Substance use type: does not use Do You Feel Safe in your Home?: Yes Lack of Transportation: No Lack of Food: Never True Current Housing: I Have Housing Concerned About Future Housing: No Difficulty Paying Gas/Electric Bills: No Difficulty Paying for Meds: No Currently Unemployed: No Education: Bachelor's Degree Difficulty w/ Childcare or Family Care: No Living arrangements: with family Additional living arrangements comments: Sister Spiritual care concerns: No Agree to blood products: Yes Meds Home Medications and Allergies Home Medications ?Medication ?Instructions ?Recorded ?Confirmed ?Type turmeric root extract 500 mg 500 mg PO DAILY 11/04/20 11/17/24 History capsule cholecalciferol (vitamin D3) 25 25 mcg PO DAILY 12/12/21 11/17/24 History mcg (1,000 unit) capsule ginkgo biloba 40 mg tablet 40 mg PO DAILY 06/26/22 11/17/24 History polyethylene glycol 3350 17 17 g PO DAILY 06/09/24 11/17/24 History gram/dose oral powder (Miralax) vitamins A,C,X-fcjc-wwzukb 2,148 2 tablet PO BID 06/09/24 11/17/24 History mcg-113 mg-45 mg-17.4 mg tablet (PreserVision AREDS) amlodipine 5 mg tablet See Rx Instructions .Route 06/22/24 11/17/24 Rx .COMPLEX #90 tabs Allergies Allergy/AdvReac Type Severity Reaction Status Date / Time rosuvastatin AdvReac Mild body aches Verified 11/17/24 11:02 meloxicam AdvReac Unknown CONFUSION Verified 11/17/24 11:02 prednisone AdvReac Unknown CYST Verified 11/17/24 11:02 DEVELOP triamterene AdvReac Unknown DECREASED Verified 11/17/24 11:02 KIDNEY FUNCTION Assessment and Plan Assessment and plan (1) Spinal stenosis, lumbar region with neurogenic claudication: Code(s): M48.062 - Spinal stenosis, lumbar region with neurogenic claudication Status: Acute (2) Lumbosacral radiculopathy: Code(s): M54.17 - Radiculopathy, lumbosacral region Status: Acute Assessment and Plan: proceed as planned with bilateral lumbar transforaminal epidural steroid injection at L3-4 under fluoroscopic guidance and with contrast control. (3) Chronic low back pain: Code(s): M54.50 - Low back pain, unspecified; G89.29 - Other chronic pain Status: Acute
--- NOTE | 2024-12-01 12:24 | WPDHPUPDATE1 ---
History and Physical Update Update Date/Time: 12/01/24 12:24 History and Physical has been reviewed, including an updated exam of the patient. There are NO changes in the patient's condition. Risks, benefits, and alternatives have been discussed and questions answered. Patient agrees to proceed with procedure.
--- NOTE | 2024-12-01 12:25 | P.OP_ITS ---
Procedure Note - Detailed Date of Procedure 12/01/24 Pre-op Diagnosis Spinal Stenosis of lumbosacral region, lumbosacral radiculopathy Post-op Diagnosis Same Procedure Performed Bilateral Lumbar Transforaminal Epidural Steroid Injection under Fluoroscopic Guidance and with Contrast Control at L3-4. Surgeon Troy Moya MD Anesthesia Local Description of Procedure INFORMED CONSENT: Risks, benefits and alternatives to the procedure were discussed in detail with the patient who expressed explicit understanding and consent to proceed. Patient was informed verbally and in written form regarding the risks associated with the procedure including the low risk of serious infection, bleeding/bruising, allergic reaction, nerve or organ injury, paralysis, procedural site pain or discomfort, worsening pain and/or mobility, failure to treat and/or disfigurement. The patient expressed explicit under standing and consent to proceed. All materials required for the procedure were available prior to procedure start. Site and side was marked prior to procedure and confirmed in the presence of the patient. PROCEDURE IN DETAIL: The patient was brought to the procedural suite and placed in the prone position. Patient was made comfortable with use of pillows under the head/chest, hips and ankles. Skin overlying the injection site was prepared broadly with ChloraPrep applicator and draped in a sterile manner. Aseptic technique was employed throughout. The endplates of the vertebral body at the site of interest were aligned in the AP view. Ipsilateral oblique angulation was utilized to better visualize the neuroforamen of interest. Local anesthesia was established by infiltration with approximately 5 mL of 0.5% PF lidocaine via a 1-1/2 inch 27-gauge needle. A 22-gauge 3.5 inch Antelmo (pencil point) spinal needle was advanced until the needle approached the 6 o'clock position on the pedicle just superior to the exiting nerve root. on the right at L3-4. Lateral view was utilized to confirm appropriate position of the needle tip within the superior and posterior portion of the respective foramen. In an AP view, 1 mL of Omnipaque 300 contrast medium was injected after negative aspiration for CSF, blood or other bodily fluid, showing appropriate neurogram without evidence of intravascular or intrathecal spread of contrast. Digital subtraction imaging was used with an additional 1ml of the same contrast medium to confirm absence of intravascular contrast spread. A 1mL solution containing 3 mg of betamethasone was injected after negative repeat aspiration. Appropriate spread of the injectate was confirmed with washout of previously injected contrast. No parasthesias were elicited. Needle was removed completely intact without difficulty. The same exact procedure was repeated for all remaining levels on the contralateral side, left L3-4 neuroforamen, modified as necessary to accommodate for the new target location with identical findings and results and no evidence of complication. Images were saved and documented in the patient chart. Patient's skin was cleaned and sterile bandage applied. The patient tolerated the procedure well. The patient was transported to the recovery area in stable condition where they were observed for an appropriate amount of time prior to discharge, without evidence of complication. The patient was instructed to avoid excessive activity for the next 48 hours, including climbing and frequent use of stairs. Showers only for 48 hours. They were instructed not to drive or operate heavy machinery for 24 hours. They are to monitor for severe headaches, fevers, chills, night sweats, erythema/swelling at the site or any other signs of infection, bleeding/bruising, bowel or bladder changes as well as new pain, weakness or numbness in the upper or lower extremity. Should they notice these changes, they are instructed to call our office immediately or report directly to the nearest Emergency Department if no answer or if after posted office hours. COMPLICATIONS: None COMMENTS: None CONTRAST WASTED: 26 mL Omnipaque 300. STEROID WASTED: 0 mg of betamethasone. Complications No immediate complications Condition Stable Disposition Same day [facility] Billing Surgery - Charge Forward: Surgery Billing
[2024-12-01 12:27] VITALS: BP 144/83; PULSE 97; RESP 16; TEMP 36.3; O2SAT 97
[2024-12-01 12:40] VITALS: BP 135/79; PULSE 92; RESP 16; O2SAT 96
[2024-12-01] MEDS: BETAMETHASONE SODIUM PHOSPHATE PF INJ 6 MG/ML VIAL INFILTRATE (12:41)
[2024-12-01] MEDS: LIDOCAINE 2% PF LOCAL INJ 5 ML VIAL INFILTRATE (12:41)
[2024-12-01 12:50] VITALS: BP 125/68; PULSE 82; RESP 16; O2SAT 97
== END 2024-12-01 13:08 | disposition home or self-care (01) ==
PROVIDERS: PCP Nurse Practitioner Family; Visit Provider Anesthesiology Pain Medicine
PROC: (CPT 64483; principal; 2024-12-01 15:30)
DX: M48.07 Spinal stenosis, lumbosacral region (principal); M54.17 Radiculopathy, lumbosacral region; G89.29 Other chronic pain
CPT/HCPCS: 64483; 99199; J0702; J2003; Q9965

== ENCOUNTER 2024-12-29 01:16 | Day surgery (SDC) | payer MEDICARE, SELFPAY ==
[2024-12-11 09:29] VITALS: BMI 37.8
--- NOTE | 2024-12-11 09:39 | PC.NURSE ---
Report to the Outpatient Waiting Room, entrance under the green pavilion located off [facility], at time __0700am on date __12/29/24 . Planned Procedure Time: __0900am .? Time changes happen often and if your time is changed the preop area will call you the afternoon before. - You and your visitor will be asked to self-screen and do not enter if you have any COVID symptoms. Please call surgeon if you need to reschedule. - A mask is optional within the hospital at this time. Patients may have NO food or drink from midnight until time of surgery and no smoking, or chewing tobacco (or any form of nicotine). No chewing gum, candy or mints. Take only the following medications with a SIP of water on the morning of surgery: ____Amlodipine DO NOT STOP ANY OF YOUR OTHER PRESCRIPTION MEDICATIONS PRIOR TO SURGERY EXCEPT THE FOLLOWING Hold all vitamins and supplements for 3 days per anesthesiologist.Date to take last dose____12/25/24 Medications to discontinue per physician None Date to take last dose____None Please no make-up, nail turkish, hairspray, perfume, deodorant, or body powder the day of surgery.? No jewelry (including any body piercings) or valuables the day of surgery, leave them at home.? Please take a shower or bath the night before, or the morning of, surgery with an antibacterial soap.? Wear comfortable, loose fitting clothing.? You cannot Drive - Jewelry must be removed prior to entering the operating room.? Rings and piercings that are not removed may be cut off. - The hospital will not accept responsibility for valuables.? - Please leave all valuables, including medications, at home the day of surgery. If you are going home after surgery, a licensed high lift driver must drive you home.? - NO public transportation without another adult if you receive anesthesia. - We recommend that an adult stay with you for 24 hours following discharge. - We also recommend that you do not drive, make important decision, drink alcoholic beverages, or take any drugs that were not prescribed by your health care provider for at least 24 hours after your discharge time. Follow any additional instructions given to you from your surgeon. Telephone instructions given to __Patient and asked if any additional questions and then verbalized understanding. Patient advised to call surgeon office or pre surgery nurse liaison [phone] if any additional questions.
[2024-12-29] VITALS (9 sets, daily range): BP systolic 128–163; BP diastolic 69–119; PULSE 76–96; RESP 14–20; TEMP 36.4–36.9; O2SAT 97–100
--- NOTE | ~2024-12-29 | XR_ITS ---
EXAMINATION: XR fluoroscopy no charge DATE: 12/29/2024 9:00 CDT INDICATION: MILD NASIMA L3-4,L4-5, L5-S1 . TECHNIQUE: 32 fluoroscopic images of the lumbar spine were obtained during bilateral L3-4, L4-5 and L 5-S1 minimally invasive lumbar decompression, performed by Troy Moya MD. I was not present dur ing the procedure. Fluoroscopy exposure time was 8 minutes 41.7 seconds. Air Kerma 521.30 mGy. DAP 44 .781 mGym2. COMPARISON: None FINDINGS/IMPRESSION: Fluoroscopic documentation of bilateral L3-4, L4-5 and L5-S1 minimally invasive lumbar decompression. Please refer to the operative note for complete procedural details. Reviewed, dictated and finalized at location K.
--- OUTSIDE RECORDS SUMMARY | 2024-12-29 01:19 | XMS_ITS | CONTINUITY OF CARE DOCUMENT ---
Author Name nomi, nomi Address Unknown Organization [facility] Office Address [address] [place] [address] Phone [phone] Care Team Providers Care Chemist Intern Name Role Phone Mat Sheldon MD Unavailable [phone] JOSE ANGEL HOFFMANN MD Unavailable JOSE ANGEL HOFFMANN MD Unavailable [phone] PROBLEMS Condition Status Date Provider Notes Abnormal electrocardiogram active Mat rivera MD Abnormal echo-possible PFO active Mat rivera MD ENCOUNTERS Date Type Provider Location Encounter Diag nosis - In-person encounter Office Visit Mat Sheldon MD [place] - In-person encounter Office Visit Mat Sheldon MD [facility] Abnormal electrocardiogramAbnormal echo-possible PFO VITAL SIGNS [...] MG ORAL TABLET active one tab daily Mta Sheldon MD SOCIAL HISTORY Date Observation Value [...] Payer name Policy type / Coverage type [place] red republican ID [facility] [id number] [place] MED[place] Medicare [id number]
--- OUTSIDE RECORDS SUMMARY | 2024-12-29 01:19 | XMS_ITS | Continuity of Care Document ---
Author Organization [facility] Address [address] [place] [phone] Phone Care Team Providers Care Branch Office Administrator Name Role Phone CONV, [facility] Unavailable Unavailable Advance Directives Directive Yes / No Effective Date File Name No Information Encounters Encounter Description Practice Location Reason(s) For Visit Diagnoses Date Provider Providers Copied on Encounter [facility] /[facility], [address] [place] [address], [address], tel:[phone] Z [facility] CONV No Information CONV [facility]. [address] [place] [address], [id number], . Family History Family Member Type Diagnosis Age At Onset No Information Immunizations Vaccine Date Status Comments INFLUENZA VACCINE administered Note: RA ; Source: New Immunization Record INFLUENZA VACCINE administered Note: RA ; Source: New Immunization Record PPSV23, PNEUMOCOCCAL VACCINE administered Note: [place] ; Source: New Immunization Record Payers Payer name Insurance type Covered republican ID Authoriza tion(s) No Information Social History [...]
[2024-12-29] MEDS: LACTATED RINGERS 1,000 ML 30 ML IV CONT ×2 (07:30→11:11)
--- NOTE | 2024-12-29 08:13 | WPDANESEPPF ---
Anes - Initial Pre Proc Eval Procedure: Operation Date: 12/29/24 09:00 Proposed Procedures p Minimally Invasive Lumbar Decompression Bilateral L3-4, L4-5, L5-S1 Under Fluoroscopic Guidance, Possible Epidurogram - Troy Moya MD Date/Time: 12/29/24 08:13 Surgeon: Troy Moya MD Pre Op Diagnosis: spinal stenosis lumbar reg w/neuro claudication Patient Data Age: 79 Gender: F Height: 1.73 m Weight: 113 kg Allergies Allergy/AdvReac Type Severity Reaction Status Date / Time rosuvastatin AdvReac Mild body aches Verified 12/14/24 11:11 meloxicam AdvReac Unknown CONFUSION Verified 12/14/24 11:11 prednisone AdvReac Unknown CYST Verified 12/14/24 11:11 DEVELOP triamterene AdvReac Unknown DECREASED Verified 12/14/24 11:11 KIDNEY FUNCTION Home Medications ?Medication ?Instructions ?Recorded ?Confirmed ?Type turmeric root extract 500 mg 500 mg PO DAILY 11/04/20 12/11/24 History capsule cholecalciferol (vitamin D3) 25 25 mcg PO DAILY 12/12/21 12/11/24 History mcg (1,000 unit) capsule ginkgo biloba 40 mg tablet 40 mg PO DAILY 06/26/22 12/11/24 History polyethylene glycol 3350 17 17 g PO DAILY 06/09/24 12/11/24 History gram/dose oral powder (Miralax) vitamins A,C,B-tjrv-hyijzp 2,148 2 tablet PO BID 06/09/24 12/11/24 History mcg-113 mg-45 mg-17.4 mg tablet (PreserVision AREDS) amlodipine 5 mg tablet See Rx Instructions .Route 06/22/24 12/11/24 Rx .COMPLEX #90 tabs calcium carbonate 600 mg PO DAILY 12/11/24 12/11/24 History lisinopril 20 mg tablet 20 mg PO DAILY 12/11/24 12/11/24 History Patient hx anesthesia problems: none Family hx anesthesia problems: none Results Review: All pre-operative results and documents have been reviewed as part of the pre-operative evaluation. [facility] Past Medical History Medical History Degenerative arthritis of knee, bilateral Osteoporosis Hypertension Arthritis Obesity (BMI 30-39.9) IFG (impaired fasting glucose) Spinal stenosis Dyslipidemia Surgical History Surgical History Hx laparoscopic cholecystectomy History of bilateral hip replacements right 2013 standard left 2019 anterior History of foot surgery Family History Family History Mother Hypertension Asthma Cerebrovascular accident Family history of thyroid disease Family history of osteoporosis Depression Heart disease Father Family history of arthritis Family history of thyroid disease, Onset Age: 92 Social History Social History Smoking status: Never smoker Alcohol intake: current Drinks per week: 1 Alcohol use details: 1-2 month Substance use: never Substance use type: does not use Do You Feel Safe in your Home?: Yes Lack of Transportation: No Lack of Food: Never True Current Housing: I Have Housing Concerned About Future Housing: No Difficulty Paying Gas/Electric Bills: No Difficulty Paying for Meds: No Currently Unemployed: No Education: Bachelor's Degree Difficulty w/ Childcare or Family Care: No Living arrangements: with family Additional living arrangements comments: Sister Spiritual care concerns: No Agree to blood products: Yes Anes - Eval Final PreProcedure Day of Procedure 12/29/24 08:13 Patient weight: obese Lungs: normal air movement Airway: Mallampati scale class III Neurological: alert and oriented Last oral intake: >/= 8 hours ASA classification: III Emergent: no Anesthetic plan: proceed Anesthesia type and monitoring: general ETT and standard monitoring Results Review: All pre-operative results and documents have been reviewed as part of the pre-operative evaluation. HTN, borderline hyperlipemia, obesity. Pt uses assistive device for ambulating short distances. Informed Consent: The patient's anesthetic plan and its attendant risks and benefits were discussed with the patient/family/POA. Questions were solicited and answers provided to the satisfaction of the patient/family/POA.
--- NOTE | 2024-12-29 08:39 | WPDHPUPDATE1 ---
History and Physical Update Update Date/Time: 12/29/24 08:39 History and Physical has been reviewed, including an updated exam of the patient. There are NO changes in the patient's condition. Risks, benefits, and alternatives have been discussed and questions answered. Patient agrees to proceed with procedure.
--- NOTE | 2024-12-29 08:47 | P.OP_ITS ---
Procedure Note - Detailed Date of Procedure 12/29/24 Pre-op Diagnosis spinal stenosis lumbar reg w/neuro claudication Post-op Diagnosis Same Procedure Performed Bilateral Minimally Invasive Lumbar Decompression (MILD) at L3-4, L4-5, L5-S1 under Fluoroscopic Guidance. Surgeon Troy Moya MD Can Runner None Anesthesia Other ([Moderate IV sedation/MAC] with local anesthetic infiltration in the prone position) Description of Procedure INFORMED CONSENT: Risks, benefits, and alternatives to the procedure were discussed in detail with the patient who expressed explicit understanding and consent to proceed. Risks discussed with the patient included but were not limited to risk of serious local or systemic infection, bleeding/bruising, epidural hematoma, dural puncture or tear resulting in CSF leak and acute or chronic post-dural puncture headache, scarring/deformity, immediate or delayed allergic reaction, decreased mobility, failure to treat pain, inadvertent neurologic injury resulting in increased pain, weakness/paralysis or numbness, inadvertent organ injury, need for additional surgery, allergic reaction, heart attack, stroke, seizure, coma, . Anesthetic risks were also briefly discussed by myself and the hot head machine operator. The patient expressed understanding and consent to proceed, agreeing that potential benefits outweigh risk of harm. All materials required for the procedure were immediately available prior to procedure start. Site and side were confirmed with the patient, compared carefully to the patient chart and consent, and marked prior to transport to the operating room. Appropriate time out procedure was performed per protocol prior to procedure start. PROCEDURE IN DETAIL: The patient was brought to the operative suite and placed in the prone position. Appropriate ASA standard monitors were attached. Anesthesia was initiated without difficulty or event. Eyes were protected. Pressure points were padded with joints in neutral position. When appropriate, breasts and genitals were evaluated and protected. Eyes were checked and were free from undue pressure. Skin overlying the procedure site was marked with sterile marker. Surgical area was prepared in a typical sterile fashion with ChloraPrep and allowed to dry for at least 3 minutes prior to sterilely draping the surgical site. The lumbar spine was identified in the AP fluoroscopic view with slight cephalad tilt perfectly aligning the endplates at the targeted levels with spinous processes bisecting the transpedicular plane. After identifying the intended incision site approximately 1.5 levels inferior to the level of interest, the area was anesthetized by infiltration with no more than 10ml of a 1:1 admixture of 0.5% PF bupivacaine with epinephrine and 2% PF lidocaine with epinepherine via a 27- gauge needle after negative aspiration. A 22-gauge spinal needle was used to provide additional and adequate local anesthesia to the level of the interspinous ligament, ligamentum flavum and the periosteum of the lamina at the intended treatment levels. In the AP view, a #11 scalpel blade was used to create a single stab incision at the intended incision site on the targeted side. The Vertos MILD kit was opened and the included cannula and trocar assembly was advanced through the incision to contact the midportion of the right lamina just adjacent to the spinous process at S1. Once seated, the lateral view was used to gauge depth demonstrating the most anterior tip of the trocar posterior to the epidural space at all times. The phlebotomist associate-provided cannula stabilizer was placed over the trocar flush to the patient's lumbar flank. Cannula obturator with handle was removed. Included depth guide was then attached to the insertion port on the cannula and set to an intitial depth of 15 mm. The bone rongeur was adv anced to the depth of the lumbar lamina at the targeted level. Depth gauge was then adjusted allowing rongeur tip to advance in the contralateral oblique view to the anterior border of the superior and inferior lamina at the respective intervertebral foramen. Multiple passes of the rongeur were used in the contralateral oblique view to remove single small portions of ligament and bone in a 360-degree distribution, approximately 3-5 passes on each lamina, until appropriate access to the superior and inferior attachments of the ligamentum flavum was created at the surgical level right L5-S1. Each individual portion of bone removed was extracted, collected and discarded. Rongeur was removed and replaced with a tissue sculpter which was deployed from inferior to superior in the contralateral oblique view to delaminate the ligamentum flavum at the intended level with serial groupings of three passes each, 6-9 total per side treated. Tissue extracted was discarded. At no point did the rongeur or tissue sculpter violate the anterior border of the ligament as evidenced by intact interface at the ligament/epidural border. The same procedure was repeated in the exact same fashion, utilizing the initial stab incision, to effectively debulk the ligamentum flavum and decompress the central spinal canal on the right at L4-5, L3-4, with similar results and no evidence of complication. The same exact procedure was then repeated in the exact same fashion, utilizing a new stab incision on the contralateral side, to effectively debulk the ligamentum flavum and decompress the central spinal canal on the left at L3-4, L4-5, L5-S1. Bone and tissue sculpters were withdrawn, obturator replaced and trocar removed in the lateral view, entirely and without difficulty. Hemostasis was obtained and confirmed. Benzoin was placed around the incision site(s) and Steri-Strips were placed in a esperanza-crossing fashion across the wound(s), which were then covered with Telfa dressing and Tegaderm. The patient was converted to the supine position and transported to the recovery area having tolerated the procedure well with no evidence of complication. The patient was instructed to minimize weightbearing activity, including ambulation, for 48 hours, and to avoid bending, twisting at the waist, overhead work, reaching and lifting, pushing or pulling greater than 5-10 lbs for 48 ho urs with subsequent return to normal activity as tolerated. The patient is to maintain current dressing for 48 hours, then can remove the original dressing, leaving steri-strips in place until they come off on their own or are removed by their provider. Once removing the outer bandage, the patient will cover the incision with clean gauze and paper tape as needed, changing daily or when soiled. The patient understands they should avoid soaking or submerging the incision for 1 week and can resume showers after 48 hours. Instructions were provided to the patient in both verbal and written form, which the patient obtained, reviewed and signed prior to discharge. The patient was instructed to watch for signs of infection including fevers, chills, night sweats, severe headache, neck stiffness, new neurologic deficit, bowel or bladder changes, increased pain, discharge, bleeding, swelling, opening of or unusual warmth at the incision site. They are to call our office or report directly to the Emergency Department immediately should there be any signs/symptoms of complications such as the above or any other urgent/emergent changes in their condition. COMMENTS: None. COMPLICATIONS: None. DRAINS/PACKING: None. SPECIMEN: None. ESTIMATED BLOOD LOSS: 10 mL. IV FLUIDS: On chart. CONTRAST WASTED: 0 ml of Isovue 300M. Pathology None sent Complications No immediate complications Condition Stable Disposition PACU [facility] Billing Surgery - Charge Forward: Surgery Billing
[2024-12-29] MEDS: ceFAZolin 2 GM/D5W 50 ML 2 GM/50 ML BAG IVPB (09:04)
[2024-12-29] MEDS: BUPIVACAINE/EPINEPHRINE 0.5% 50 ML VIAL 10 ML INFILTRATE (09:25)
[2024-12-29] MEDS: LIDOCAINE 1% LOCAL INJ 10 ML VIAL INFILTRATE (09:25)
[2024-12-29] MEDS: fentaNYL CITRATE INJ (*CRX) 100 MCG/2 ML VIAL 25 MCG IV PUSH ×2 (10:33→10:35)
[2024-12-29] MEDS: ONDANSETRON INJ 4 MG/2 ML VIAL IV PUSH (11:12)
== END 2024-12-29 12:44 | disposition home or self-care (01) ==
PROVIDERS: PCP Nurse Practitioner Family; Visit Provider Anesthesiology Pain Medicine
PROC: (CPT 0275T; principal; 2024-12-29 09:00)
DX: M48.062 Spinal stenosis, lumbar region with neurogenic claudication (principal); M54.17 Radiculopathy, lumbosacral region; M54.51 Vertebrogenic low back pain; M43.16 Spondylolisthesis, lumbar region; E66.9 Obesity, unspecified; Z68.39 Body mass index [BMI] 39.0-39.9, adult; Z00.6 Encounter for examination for normal comparison and control in clinical research program
CPT/HCPCS: 0275T; 99199; C1889; J0330; J0690; J1100; J2003; J2405; J2704; J3010; J7120

== ENCOUNTER 2025-03-25 11:00 | Outpatient (CLI) | payer MEDICARE, SELFPAY ==
--- OUTSIDE RECORDS SUMMARY | 2025-03-25 11:07 | XMS_ITS | Continuity of Care Document ---
Author Organization [facility] Address [address] [place] [id number] Phone Care Team Providers Care Reproduction Specialist Name Role Phone CONV, [facility] Unavailable Unavailable Advance Directives Directive Yes / No Effective Date File Name No Information Encounters Encounter Description Practice Location Reason(s) For Visit Diagnoses Date Provider Providers Copied on Encounter [facility] /[facility], [address] [place] [address], [id number], tel:[phone] Z [facility] CONV No Information CONV [facility]. [address] [place] [address], [id number], . Family History Family Member Type Diagnosis Age At Onset No Information Immunizations Vaccine Date Status Comments INFLUENZA VACCINE administered Note: RA ; Source: New Immunization Record INFLUENZA VACCINE administered Note: RA ; Source: New Immunization Record [id number], PNEUMOCOCCAL VACCINE administered Note: [place] ; Source: New Immunization Record Payers Payer name Insurance type Covered democrat ID Authoriza tion(s) No Information Social History [...]
[2025-03-25 11:34] LABS: Hematocrit 41.5 % (37.0-47.0); Hemoglobin 14.0 g/dL (12.0-15.0); Immature Granulocyte Percent A 0.3 % (0-0.5); Lymphocytes Absolute Auto 2.62 K/mm3 (0.9-3.2); Mean Corpuscular HGB Conc 33.7 g/dl (32-36); Mean Corpuscular Hemoglobin 29.4 pg (26-34); Mean Corpuscular Volume 87.0 fl (80-100); Nucleated Red Blood Cells Absolute Auto 0.000 K/mm3 (0.0-0.012); Nucleated Red Blood Cells Perc 0.0 % (0.0-0.2); Platelet Count Result 322 k/mm3 (150-375); Red Blood Count 4.77 M/mm3 (4.2-5.4); White Blood Count 9.4 K/mm3 (4.5-10.0)
[2025-03-25 11:48] LABS: Alanine Aminotransferase 29 U/L (6-35); Albumin Level 4.4 g/dL (3.5-5.1); Alkaline Phosphatase 76 U/L (38-126); Anion Gap 8 mmol/L (4-12); Aspartate Amino Transferase 33 U/L (14-36); Bilirubin,Total 0.5 mg/dL (0.2-1.3); Blood Urea Nitrogen 18 mg/dL (7-17); Calcium 9.9 mg/dL (8.4-10.2); Carbon Dioxide 24 mmol/L (22-30); Chloride 101 mmol/L (98-107); Cholesterol 202 mg/dL (0-200); Estimated Glomerular Filt Rate 54; Glucose 116 mg/dL (65-110); HDL Direct 56 mg/dL; Potassium 4.7 mmol/L (3.4-5.0); Sodium 133 mmol/L (137-145); Total Protein 7.9 g/dL (6.3-8.2); Triglycerides 109 mg/dL (<150)
[2025-03-25 17:22] LABS: Hemoglobin A1C 6.2 % (<5.7)
== END 2025-03-25 11:01 | disposition home or self-care (01) ==
LOC: ANHLAB 11:01
PROVIDERS: PCP Nurse Practitioner Family; Visit Provider Nurse Practitioner Family
DX: R73.01 Impaired fasting glucose (principal); I10 Essential (primary) hypertension; E78.5 Hyperlipidemia, unspecified; M89.49 Other hypertrophic osteoarthropathy, multiple sites; M48.00 Spinal stenosis, site unspecified; M51.369 Other intervertebral disc degeneration, lumbar region without mention of lumbar back pain or lower extremity pain
CPT/HCPCS: 36415; 80053; 80061; 83036; 85025